=== PATIENT | female | born 1950 | race Caucasian/White ===

== ENCOUNTER 2017-07-03 15:58 | Inpatient (IN) | payer MEDICARE ==
[2016-06-07 08:28] VITALS: Ht 152.4 cm; Wt 45.4 kg
[~2017-07-03] VITALS: Ht 152.4 cm; Wt 45.4 kg
[~2017-07-03 15:58] MED LIST: ACE325 PO; ADV250/50 INH; ADV500/50 INH; ALB17R INH; ALB18R INH; ALB6.7R INH; ALBU2.5V36 INH; AMOX-362 PO; CEF300 PO; CHOL100060 PO; COM14R IH; COMBIVENT; DAR100 PO; ESCI20TA38 PO; FLU20 PO; FLU44R INH; FOL1 PO; IBUP200C71 PO; INDO50CA92 PO; LANS1COM7 PO; LEV500 PO; LOR05 PO; LOR5 PO; MEP50 PO; MET10 PO; METH4TAB66 PO; MIRT-22 PO; MULT-1335 PO; MVM PO; NIC21T TOP; NICO-180 TD; OXYC-865 PO; OXYGEN INH; OXYGENHOME INH; PENI-22 PO; PRE10 PO; PRE20 PO; PROAIRPT IH; TIO18R INH; TRAZ-133 PO; TRAZ-163 PO; VAR1 PO; VEN375 PO; [UNRECOGNIZED DRUG - OTHER] INH
[2017-07-03] MEDS ORDERED: SERT-173 PO (16:10)
--- NOTE | 2017-07-03 16:10 | ER Report ---
History and Physical Time Seen By MD: 16:10 Hx. of Stated Complaint: PTPORESENTS WITH HX OF ABD PAIN SINCE LAST NIGHT, NAUSEA THIS MORNING. HX OF BOWEL OBS, THIS FEELS THE SAME HPI/ROS CHIEF COMPLAINT: Abdominal pain HISTORY OF PRESENT ILLNESS: 67-year-old female patient presents to emergency room with complaint of abdominal pain. Patient states abdominal pain started last night. She states that she didn't have any nausea until about 10:00 this morning. She states that the nausea has gotten worse. She states from 2:00 to now the nauseous has been significant. She states she's also been having significant abdominal pain. Patient states that she's not had anything to eat or drink. She denies having any vomiting. She denies having any diarrhea. Patient does have a history of small bowel obstructions and states that this feels very similar to the last time that she had a small bowel obstruction. REVIEW OF SYSTEMS: Respiratory: No cough, no dyspnea. Cardiovascular: No chest pain, no palpitations. Gastrointestinal: As noted above Musculoskeletal: No back pain. Allergies: Coded Allergies: hydromorphone (Verified Allergy, Unknown, MENTAL STATUS CHANGES, 07/03/17) Home Meds Active Scripts Albuterol Sulfate 0.083% (ALBUTEROL SULFATE 0.083%) 2.5 Mg/3 Ml Vial.neb, 2.5 MG INH Q4H for cough/sob, #1 BOX 0 Refills Prov:TONIE CHACON MD 07/14/16 Fluticasone Prop 44 Mcg (FLOVENT HFA 44 MCG) 44 Mcg Inha, 2 PUFF INH BID, #1 INH 1 Refill Prov:TONIE CHACON MD 07/14/16 Reported Medications Sertraline Hcl (ZOLOFT) 100 Mg Tablet, 1 TAB PO QDAY, TAB 07/03/17 Oxygen (OXYGEN) 2 L Inha, 2.5 L INH NIGHT, L 08/17/14 Trazodone Hcl (TRAZODONE HCL) 100 Mg Tablet, 1 TAB PO HS Y for INSOMNIA, #30 05/14/14 Albuterol Sulfate (Proair Hfa) 8.5 Gm Aer.w.adap, 8.5 GM IH BID Y, #1 2 Refills 2 puffs BID 10/09/10 Discontinued Scripts Methylprednisolone (METHYLPREDNISOLONE) 4 Mg Tab.ds.pk, 4 MG PO DIRECTED, #1 TAB Prov:ISMAEL MEJIA MD 06/09/16 Amoxicillin (AMOXICILLIN) 500 Mg Capsule, 500 MG PO TID for 7 Days, CAPSULE Prov:ISMAEL MEJIA MD 06/09/16 Past Medical/Surgical History Patient has a past medical history of seizures, irregular heartbeat, DVT, asthma , emphysema, pneumonia, pulmonary emboli, COPD, reflux, arthritis, osteoporosis , fractures, factor V Leiden, depression, cervical cancer. Patient has a surgical history of a [place] filter placed, bowel obstruction , appendectomy, hysterectomy, right ankle surgery, deviated septum surgery, tonsillectomy. Patient has a family medical history of cancer, CAD, diabetes, psychiatric problems. Reviewed Nurses Notes: Yes Hx Smoking: Yes Smoking Status: Current: Every Day Smoker Hx Substance Use Disorder: No Hx Alcohol Use: No Constitutional Vital Sign - Last 24 Hours 07/03/17 07/03/17 07/03/17 07/03/17 16:05 16:06 16:10 16:14 Temp 99.5 Pulse 96 Resp 24 B/P (MAP) 140/107 140/107 (118) 170/137 (148) Pulse Ox 83 O2 Delivery Room Air O2 Flow Rate 2.0 07/03/17 07/03/17 07/03/17 07/03/17 16:28 16:30 16:58 16:59 Pulse 82 88 B/P (MAP) 144/95 (111) Pulse Ox 95 95 07/03/17 07/03/17 17:30 17:34 Pulse 74 B/P (MAP) 129/69 (89) Pulse Ox 98 Physical Exam General Appearance: The patient is alert, has no immediate need for airway protection and no current signs of toxicity. ENT: Tympanic membranes are pearly-king, auditory canals are patent, mucous membranes are moist. Respiratory: Chest is non tender, lungs are clear to auscultation. Cardiac: regular rate and rhythm Gastrointestinal: Abdomen is stented and tender, no masses, bowel sounds are hypoactive and left lower quadrant, otherwise active.. Musculoskeletal: Neck: Neck is supple and non tender. Extremities have full range of motion and are non tender. Skin: No rashes or lesions. DIFFERENTIAL DIAGNOSIS: After history and physical exam differential diagnosis was considered for abdominal pain including but not limited to appendicitis, cholecystitis, gastritis and urinary tract infection. Medical Decision Making Data Points Result Diagram: 07/03/17 1638 07/03/17 1638 Laboratory Hematology Test 07/03/17 16:38 07/03/17 17:48 Red Blood Count 5.57 M/uL (4.17-5.56) Mean Corpuscular Volume 90.3 fL (80.0-96.0) Mean Corpuscular Hemoglobin 30.2 pg (26.0-33.0) Mean Corpuscular Hemoglobin Concent 33.5 g/dL (32.0-36.0) Red Cell Distribution Width 13.2 % (11.5-14.5) Mean Platelet Volume 11.2 fL (7.2-11.1) Neutrophils (%) (Auto) 75.1 % (39.4-72.5) Lymphocytes (%) (Auto) 15.3 % (17.6-49.6) Monocytes (%) (Auto) 8.5 % (4.1-12.4) Eosinophils (%) (Auto) 0.3 % (0.4-6.7) Basophils (%) (Auto) 0.8 % (0.3-1.4) Nucleated RBC Relative Count (auto) 0.0 /100WBC Neutrophils # (Auto) 9.8 K/uL (2.0-7.4) Lymphocytes # (Auto) 2.0 K/uL (1.3-3.6) Monocytes # (Auto) 1.1 K/uL (0.3-1.0) Eosinophils # (Auto) 0.0 K/uL (0.0-0.5) Basophils # (Auto) 0.1 K/uL (0.0-0.1) Nucleated RBC Absolute Count (auto) 0.00 K/uL Sodium Level 137 mmol/L (137-145) Potassium Level 3.9 mmol/L (3.5-5.0) Chloride Level 101 mmol/L (98-107) Carbon Dioxide Level 27 mmol/L (22-31) Blood Urea Nitrogen 14 mg/dl (7-18) Creatinine 0.60 mg/dl (0.52-1.04) Glomerular Filtration Rate Calc > 60.0 Random Glucose 104 mg/dl (75-110) Calcium Level 9.1 mg/dl (8.4-10.2) Total Bilirubin 0.7 mg/dl (0.2-1.3) Aspartate Amino Transf (AST/SGOT) 23 U/L (0-35) Alanine Aminotransferase (ALT/SGPT) 27 U/L (0-56) Alkaline Phosphatase 53 U/L (0-126) Total Protein 6.9 gm/dl (6.3-8.2) Albumin 4.0 g/dl (3.5-5.0) Amylase Level 86 U/L (0-110) Lipase 91 U/L (23-300) Urine Color Yellow Urine Clarity Clear Urine pH 6.0 pH (4.8-9.5) Urine Specific [place] 1.043 Urine Protein Negative mg/dL (NEGATIVE) Urine Glucose (UA) Negative mg/dL (NEGATIVE) Urine Ketones Trace mg/dL (NEGATIVE) Urine Blood Negative (NEGATIVE) Urine Nitrite Negative (NEGATIVE) Urine Bilirubin Negative (NEGATIVE) Urine Urobilinogen Negative mg/dL (0.2-1.9) Urine Leukocyte Esterase Negative (NEGATIVE) Urine RBC <1 /HPF (0-2/HPF) Urine WBC 2 /HPF (0-5/HPF) Urine Squamous Epithelial Cells Many /LPF (</=FEW) Urine Transitional Epithelial Cells Few /LPF (NONE-FEW) Urine Bacteria Negative /HPF (NONE-FEW) Urine Mucus None /HPF (NONE-FEW) Chemistry Test 07/03/17 16:38 07/03/17 17:48 White Blood Count 13.0 k/uL (4.5-11.0) Red Blood Count 5.57 M/uL (4.17-5.56) Hemoglobin 16.8 g/dL (12.0-16.0) Hematocrit 50.3 % (34.0-47.0) Mean Corpuscular Volume 90.3 fL (80.0-96.0) Mean Corpuscular Hemoglobin 30.2 pg (26.0-33.0) Mean Corpuscular Hemoglobin Concent 33.5 g/dL (32.0-36.0) Red Cell Distribution Width 13.2 % (11.5-14.5) Platelet Count 131 K/uL (150-450) Mean Platelet Volume 11.2 fL (7.2-11.1) Neutrophils (%) (Auto) 75.1 % (39.4-72.5) Lymphocytes (%) (Auto) 15.3 % (17.6-49.6) Monocytes (%) (Auto) 8.5 % (4.1-12.4) Eosinophils (%) (Auto) 0.3 % (0.4-6.7) Basophils (%) (Auto) 0.8 % (0.3-1.4) Nucleated RBC Relative Count (auto) 0.0 /100WBC Neutrophils # (Auto) 9.8 K/uL (2.0-7.4) Lymphocytes # (Auto) 2.0 K/uL (1.3-3.6) Monocytes # (Auto) 1.1 K/uL (0.3-1.0) Eosinophils # (Auto) 0.0 K/uL (0.0-0.5) Basophils # (Auto) 0.1 K/uL (0.0-0.1) Nucleated RBC Absolute Count (auto) 0.00 K/uL Glomerular Filtration Rate Calc > 60.0 Calcium Level 9.1 mg/dl (8.4-10.2) Total Bilirubin 0.7 mg/dl (0.2-1.3) Aspartate Amino Transf (AST/SGOT) 23 U/L (0-35) Alanine Aminotransferase (ALT/SGPT) 27 U/L (0-56) Alkaline Phosphatase 53 U/L (0-126) Total Protein 6.9 gm/dl (6.3-8.2) Albumin 4.0 g/dl (3.5-5.0) Amylase Level 86 U/L (0-110) Lipase 91 U/L (23-300) Urine Color Yellow Urine Clarity Clear Urine pH 6.0 pH (4.8-9.5) Urine Specific [place] 1.043 Urine Protein Negative mg/dL (NEGATIVE) Urine Glucose (UA) Negative mg/dL (NEGATIVE) Urine Ketones Trace mg/dL (NEGATIVE) Urine Blood Negative (NEGATIVE) Urine Nitrite Negative (NEGATIVE) Urine Bilirubin Negative (NEGATIVE) Urine Urobilinogen Negative mg/dL (0.2-1.9) Urine Leukocyte Esterase Negative (NEGATIVE) Urine RBC <1 /HPF (0-2/HPF) Urine WBC 2 /HPF (0-5/HPF) Urine Squamous Epithelial Cells Many /LPF (</=FEW) Urine Transitional Epithelial Cells Few /LPF (NONE-FEW) Urine Bacteria Negative /HPF (NONE-FEW) Urine Mucus None /HPF (NONE-FEW) Urinalysis Test 07/03/17 17:48 Urine Color Yellow Urine Clarity Clear Urine pH 6.0 pH (4.8-9.5) Urine Specific [place] 1.043 Urine Protein Negative mg/dL (NEGATIVE) Urine Glucose (UA) Negative mg/dL (NEGATIVE) Urine Ketones Trace mg/dL (NEGATIVE) Urine Blood Negative (NEGATIVE) Urine Nitrite Negative (NEGATIVE) Urine Bilirubin Negative (NEGATIVE) Urine Urobilinogen Negative mg/dL (0.2-1.9) Urine Leukocyte Esterase Negative (NEGATIVE) Urine RBC <1 /HPF (0-2/HPF) Urine WBC 2 /HPF (0-5/HPF) Urine Squamous Epithelial Cells Many /LPF (</=FEW) Urine Transitional Epithelial Cells Few /LPF (NONE-FEW) Urine Bacteria Negative /HPF (NONE-FEW) Urine Mucus None /HPF (NONE-FEW) EKG/Imaging Imaging EXAMINATION: CT abdomen and pelvis with IV contrast HISTORY: Abdominal pain. TECHNIQUE: Axial CT images of the abdomen and pelvis were obtained with IV contrast, with coronal and sagittal 2D reconstructed images. One of the following dose optimization techniques was utilized in the performance of this exam: Automated exposure control; adjustment of the mA and/ or kV according to the patient's size; or use of an iterative reconstruction technique. Specific details can be referenced in the facility's radiology CT exam operational policy. Contrast: 75 mL of IV Isovue-370. COMPARISON: 05/25/2014. FINDINGS: Liver: Negative. Gallbladder and bile ducts: Negative. Spleen: Negative. Pancreas: Negative. Adrenal glands: Negative. Kidneys: No urinary calculi or hydronephrosis. The kidneys enhance normally. Single 1.6 cm cyst in the upper right kidney. Bowel and peritoneum: There is mild dilatation of multiple small bowel loops in the left abdomen and pelvis, measuring up to 3.8 cm, with air-fluid levels. There is transition to decompressed small bowel in the lower central pelvis, with CT appearance suspicious for small bowel obstruction. Distal segments of small bowel are normal in caliber with a small amount of fluid and air. There is some associated mesenteric edema with a trace amount of free fluid. No localized bowel wall thickening. No free intraperitoneal air. Scattered colonic diverticulosis, without evidence of diverticulitis. Pelvic structures: Hysterectomy. Lymph node assessment: Negative. Vessels: Normal caliber abdominal aorta, with mild vascular calcifications. An IVC filter is present in the right common iliac vein with the limbs of the filter extending beyond the wall of the vein into the adjacent retroperitoneal fat. This is unchanged from the prior CT. Musculoskeletal: No acute osseous findings. Mild scattered degenerative changes throughout the spine. Body wall: Negative. Lung bases: Stable chronic parenchymal scarring in the right lung base. IMPRESSION: 1. Multiple mildly dilated small bowel loops in the abdomen and pelvis, compatible with small bowel obstruction. There appears to be a transition along the mid ileum in the central pelvis. There is some mild mesenteric edema with a trace amount of free fluid. No free intraperitoneal air. 2. No other acute intra-abdominal findings. 3. Colonic diverticulosis. Findings were discussed with FLAQUITO MCKEON at 07/03/2017 5:42 PM. Report Dictated By: Ivan Perez MD at 07/03/2017 5:29 PM Report E-Signed By: Ivan Perez MD at 07/03/2017 5:42 PM ED Course/Re-evaluation ED Course Patient was admitted to the exam room, history and physical were obtained. Differential diagnoses were considered. On examination patient has hypoactive bowel sounds in the left lower quadrant, she was diffusely tender throughout. A CBC, CMP, urinalysis were obtained. Patient did have an elevated white count 13, [address] scan of abdomen and pelvis was done which showed a small bowel obstruction with transition point in the mid ileus, no perforation. I discussed the case with Dr. Melendez, general surgeon, who agreed to accept the patient for admission. He requested that a NG tube be placed. I did speak with the patient who has had a long-standing history of small bowel obstructions and states that NG tube have caused significant damage to her nose, she refused at this time. The [facility] floor with diagnosis of small bowel obstruction. Decision to Disposition Date: Jul 03, 2017 Decision to Disposition Time: 17:53 Depart Departure Latest Vital Signs Vital Signs Date Time Temp Pulse Resp B/P (MAP) Pulse Ox O2 Delivery O2 Flow Rate FiO2 07/03/17 17:34 74 98 07/03/17 17:30 129/69 (89) 07/03/17 16:10 2.0 07/03/17 16:05 99.5 24 Room Air Impression: Primary Impression: Small bowel obstruction Condition: Condition Unchanged Disposition: Admitted from ER Referrals: LUDIVINA HERNANDEZ DO (PCP) FLAQUITO MCKEON Jul 03, 2017 16:10
[2017-07-03] MEDS ORDERED: NS(*) 0.9% 1000 ML BAG 1,000 ML IV ONE (16:13)
[2017-07-03] MEDS ORDERED: ONDANSETRON 4 MG/2 ML VIAL IVP ONE (16:15)
[2017-07-03] MEDS ORDERED: ALBUTEROL/IPRATROPIUM 3 ML NEB NEB ONE (16:15)
[2017-07-03] MEDS ORDERED: MORPHINE 2 MG/ML SYR IVP ONE (16:15)
[2017-07-03] MEDS ORDERED: MORPHINE 2 MG/ML SYR ONE (16:27)
[2017-07-03] MEDS ORDERED: IOPAMIDOL 76% 75 ML INFUS BTL 0 ML ONE (16:45)
[2017-07-03 16:48] LABS: PLATELET COUNT, AUTOMATED 131 K/uL (150-450)
[2017-07-03] MEDS ORDERED: IOPAMIDOL 76% 75 ML INFUS BTL 75 ML ONE (16:59)
--- NOTE | 2017-07-03 17:46 | RADIOLOGY IMAGING REPORT ---
FACILITY: [facility] - [place] PATIENT NAME: Kim Strange : 1950 MR: [id number] V: [id number] EXAM DATE: ORDERING PHYSICIAN: FLAQUITO MCKEON TECHNOLOGIST: Location: [facility] - [place] Patient: Kim Strange : 1950 Visit/Account:[id number] Date of Sevice: 07/03/2017 EXAMINATION: CT abdomen and pelvis with IV contrast HISTORY: Abdominal pain. TECHNIQUE: Axial CT images of the abdomen and pelvis were obtained with IV contrast, with coronal a nd sagittal 2D reconstructed images. One of the following dose optimization techniques was utilized in the performance of this exam: Autom ated exposure control; adjustment of the mA and/or kV according to the patient's size; or use of an i terative reconstruction technique. Specific details can be referenced in the facility's radiology C T exam operational policy. Contrast: 75 mL of IV Isovue-370. COMPARISON: 05/25/2014. FINDINGS: Liver: Negative. Gallbladder and bile ducts: Negative. Spleen: Negative. Pancreas: Negative. Adrenal glands: Negative. Kidneys: No urinary calculi or hydronephrosis. The kidneys enhance normally. Single 1.6 cm cyst in t he upper right kidney. Bowel and peritoneum: There is mild dilatation of multiple small bowel loops in the left abdomen and pelvis, measuring up to 3.8 cm, with air-fluid levels. There is transition to decompressed small bow el in the lower central pelvis, with CT appearance suspicious for small bowel obstruction. Distal seg ments of small bowel are normal in caliber with a small amount of fluid and air. There is some associ ated mesenteric edema with a trace amount of free fluid. No localized bowel wall thickening. No free intraperitoneal air. Scattered colonic diverticulosis, without evidence of diverticulitis. Pelvic structures: Hysterectomy. Lymph node assessment: Negative. Vessels: Normal caliber abdominal aorta, with mild vascular calcifications. An IVC filter is present in the right common iliac vein with the limbs of the filter extending beyond the wall of the vein in to the adjacent retroperitoneal fat. This is unchanged from the prior CT. Musculoskeletal: No acute osseous findings. Mild scattered degenerative changes throughout the spin e. Body wall: Negative. Lung bases: Stable chronic parenchymal scarring in the right lung base. IMPRESSION: 1. Multiple mildly dilated small bowel loops in the abdomen and pelvis, compatible with small bowel o bstruction. There appears to be a transition along the mid ileum in the central pelvis. There is some mild mesenteric edema with a trace amount of free fluid. No free intraperitoneal air. 2. No other acute intra-abdominal findings. 3. Colonic diverticulosis. Findings were discussed with FLAQUITO MCKEON at 07/03/2017 5:42 PM. Report Dictated By: Ivan Perez MD at 07/03/2017 5:29 PM Report E-Signed By: Ivan Perez MD at 07/03/2017 5:42 PM WSN:[id number]
[2017-07-03 18:15] VITALS: BP 121/72
[2017-07-03] MEDS ORDERED: FLUSH 10 ML SYR IVP PRN (18:15)
[2017-07-03] MEDS ORDERED: ALBUTEROL/IPRATROPIUM 3 ML NEB NEB PRN (18:15)
[2017-07-03] MEDS ORDERED: ACETAMINOPHEN(*)1000 MG/100 ML 100 ML IVPB PRN (18:15)
[2017-07-03 19:21] VITALS: BP 132/76
[2017-07-03] MEDS: MORPHINE 2 MG/ML SYR IVP PRN ×2 (19:34→21:41)
[2017-07-03] MEDS: FLUTICASONE PROP 44 MCG INH INH SCH (19:40)
[2017-07-03] MEDS: NS(*) 0.9% 1000 ML BAG 1,000 ML IV PRN (21:18)
[2017-07-03] MEDS: traZODone HCL 50 MG TAB PO PRN (21:40)
[2017-07-04] VITALS (7 sets, daily range): BP systolic 98–123; BP diastolic 50–70
[2017-07-04] MEDS: MORPHINE 2 MG/ML SYR IVP PRN ×3 (01:03→05:01)
[2017-07-04] MEDS: ONDANSETRON 4 MG/2 ML VIAL IVP PRN ×2 (03:09→22:29)
[2017-07-04] MEDS: FLUTICASONE PROP 44 MCG INH INH SCH ×2 (04:38→17:35)
--- NOTE | 2017-07-04 06:20 | RADIOLOGY IMAGING REPORT ---
FACILITY: [facility] PATIENT NAME: Kim Strange : 1950 MR: [id number] V: [id number] EXAM DATE: ORDERING PHYSICIAN: DREA KENDRICK TECHNOLOGIST: Location: [facility] [place] Patient: Kim Strange : 1950 Visit/Account:[id number] Date of Sevice: 07/04/2017 Abdomen: Indication: Evaluate obstruction. Technique: A single supine film was obtained. Comparison: CT scan dated 07/03/2017 Findings: There are moderately dilated small bowel loops in the midabdomen and left lower quadrant, c ompatible with persistent obstruction. There is evidence of air in colon, which is not dilated. No newman spicious calcifications are identified. The IVC filter appears unchanged. Residual opaque contrast is present in the bladder lumen from the recent CT scan. IMPRESSION: There is persistent evidence of dilated small bowel loops, compatible with obstruction. Report Dictated By: Demarcus Nielsen MD at 07/04/2017 6:12 AM Report E-Signed By: Demarcus Nielsen MD at 07/04/2017 6:16 AM WSN:[id number]
[2017-07-04 06:23] LABS: PLATELET COUNT, AUTOMATED 119 K/uL (150-450)
[2017-07-04] MEDS ORDERED: NALOXONE HCL 0.4 MG/ML VIAL IVP PRN (07:25)
[2017-07-04] MEDS: NS(*) 0.9% 1000 ML BAG 1,000 ML IV PRN ×2 (07:35→19:55)
--- NOTE | 2017-07-04 07:45 | Gen Surgery History & Physical ---
History of Present Illness Chief Complaint Abdominal pain, N/V History of Present Illness 67yo female presents with 1.5 days of intermittent abdominal pain and yesterday she developed N/V. Her last BM was yesterday morning and was small. No flatus for 2 days. She's had multiple abdominal surgeries, including several for adhesiolysis to treat SBOs. I've admitted her twice (before this admission) in 6 years for SBOs and these were successfully managed conservatively. Her last SBO was almost 3 years ago. History Problems: (1) History of alcohol abuse Status: Chronic (2) COPD (chronic obstructive pulmonary disease) Status: Chronic (3) Depression Status: Chronic (4) Factor V Leiden mutation Status: Chronic (5) History of pulmonary embolism Status: Chronic (6) History of CVA (cerebrovascular accident) Status: Chronic (7) History of DVT (deep vein thrombosis) Status: Chronic (8) OAB (overactive bladder) Status: Chronic (9) INSOMNIA, UNSPECIFIED Status: Chronic (10) S/P insertion of IVC (inferior vena caval) filter Status: Chronic (11) History of laparotomy Status: Chronic Home Meds Active Scripts Albuterol Sulfate 0.083% (ALBUTEROL SULFATE 0.083%) 2.5 Mg/3 Ml Vial.neb, 2.5 MG INH Q4H for cough/sob, #1 BOX 0 Refills Prov:TONIE CHACON MD 07/14/16 Fluticasone Prop 44 Mcg (FLOVENT HFA 44 MCG) 44 Mcg Inha, 2 PUFF INH BID, #1 INH 1 Refill Prov:TONIE CHACON MD 07/14/16 Reported Medications Sertraline Hcl (ZOLOFT) 100 Mg Tablet, 1 TAB PO QDAY, TAB 07/03/17 Oxygen (OXYGEN) 2 L Inha, 2.5 L INH NIGHT, L 08/17/14 Trazodone Hcl (TRAZODONE HCL) 100 Mg Tablet, 1 TAB PO HS Y for INSOMNIA, #30 05/14/14 Albuterol Sulfate (Proair Hfa) 8.5 Gm Aer.w.adap, 8.5 GM IH BID Y, #1 2 Refills 2 puffs BID 10/09/10 Discontinued Scripts Methylprednisolone (METHYLPREDNISOLONE) 4 Mg Tab.ds.pk, 4 MG PO DIRECTED, #1 TAB Prov:ROBERTO,PUSHAPDEEP K MD 06/09/16 Amoxicillin (AMOXICILLIN) 500 Mg Capsule, 500 MG PO TID for 7 Days, CAPSULE Prov:ISMAEL MEJIA MD 06/09/16 Allergies: Coded Allergies: hydromorphone (Verified Allergy, Unknown, MENTAL STATUS CHANGES, 07/03/17) Patient History: FH: CHF (congestive heart failure) MOTHER FH: COPD (chronic obstructive pulmonary disease) MOTHER Review of Systems All Systems Reviewed/Normal: Yes, Except as Noted Gastrointestinal: Nausea, Vomiting, Abdominal Pain Exam General Appearance: Alert, Awake, No Acute Distress, Afebrile Neuro: No Gross deficits Eyes: PERRLA GI: Other (Soft, distended, diffusely TTP, no peritoneal signs.) Extremities: Warm, Perfused Medical Decision Making Data Points Result Diagram: 07/04/17 0535 07/04/17 0535 Assessment and Plan Problems: (1) Small bowel obstruction Status: Acute Assessment & Plan: 07/04/17: Admit, NPO, IV fluids, bowel rest. Will start with conservative management and if she fails this then surgical exploration may become necessary. She is a high risk surgical patient due to her cardiovascular disease, smoker, and severe COPD. Will try to avoid surgery. I' ve strongly recommend NG tube insertion for GI tract decompression but she has repeatedly refused this. She has had multiple NGs in the past and she reports her nose is deformed because of them, she can't move air through her right nostril due to previous NG tubes, and she's afraid she won't be able to breath with an NG in her left nostril since her right nostril is obstructed. Will hold off on NG for now. Pain control with COMPENSATION SUPERVISOR, IV tylenol, and IV toradol. If she fails to improve today, will consider water-soluble SBFT tomorrow. She seems to understand and she seems agreeable with this plan. (2) COPD (chronic obstructive pulmonary disease) Status: Chronic Assessment & Plan: Will have her on her chronic maintenance regimen and duoneb treatments as needed. This will certainly increase the risks of respiratory failure/ventilator dependance and if surgery is required. (3) Factor V Leiden mutation Status: Chronic Assessment & Plan: She is not on chronic blood thinners, will have her on prophylactic lovenox while admitted. (4) History of DVT (deep vein thrombosis) Status: Chronic Assessment & Plan: prophylactic lovenox (5) History of pulmonary embolism Status: Chronic Assessment & Plan: Prophylactic lovenox (6) History of alcohol abuse Status: Chronic Assessment & Plan: Denies recent use, will observe for withdrawal s/sx (7) Smoker Status: Chronic Assessment & Plan: Nicotine patch Condition STable. Time Spent: < 30 min Venous Thromboembolism VTE Risk Physician Assess for VTE Risk: Yes Patient's VTE Risk: High VTE Diagnostic Test 2 Days Prior to Admit: No Antithrombotics Is Pt On Any Antithrombotics?: Yes Problem Qualifiers (1) COPD (chronic obstructive pulmonary disease): COPD type: emphysema Emphysema type: unspecified Qualified Codes: J43.9 - Emphysema, unspecified DREA KENDRICK MD Jul 04, 2017 07:45
[2017-07-04] MEDS: MORPHINE 1 MG/ML 30 ML PCA IV PRN ×2 (08:20→19:54)
[2017-07-04] MEDS: NICOTINE 14 MG/24 HR PATCH TD SCH (08:35)
[2017-07-04] MEDS: PANTOPRAZOLE SOD 40 MG IV VIAL IVP SCH (08:36)
[2017-07-04] MEDS: ENOXAPARIN 40 MG/0.4ML SYR SC SCH (08:36)
[2017-07-04] MEDS: SERTRALINE HCL 50 MG TAB PO SCH (09:23)
[2017-07-04] MEDS: KETOROLAC 30 MG/ML VIAL IVP SCH ×3 (09:24→20:59)
[2017-07-04] MEDS: ACETAMINOPHEN(*)1000 MG/100 ML 100 ML IVPB SCH ×2 (12:05→18:38)
--- NOTE | 2017-07-04 13:39 | Medical Nutrition Therapy ---
Nutrition Anthropometrics Height (Inches): 60 Weight (Pounds): 100 Weight (Calculated Kilograms): 45.416 BMI Calculated: 18.94 Roel Nutrition Score: Probably Inadequate Roel Nutrition Risk Score: 19 Dietary Referral Nutrition Risk Factors: Unplanned Loss >10lbs, Significantly Underwt. Nutrition Risk Comment: 2 year wt loss Physical Findings Physical Appearance: BMI 19.6 Skin Appearance Skin Appearance: Edema Edema Location Modifier: Edema Location: Type of Edema: Degree of Edema: Gastrointestinal Symptoms GI Symtoms: Nausea, Vomiting, Appetite Changes, Change in Bowel Pattern Tube Present: Bowel Sounds: Recent Bowel Pattern: Stool Characteristics: Nutritional Diagnosis Nutritional Risk Acuity 1: GI Obstruction Nutritional Risk Acuity 3: Nausea Past Medical History: Factor V Leiden mutation, History of pulmonary embolism, OAB (overactive bladder), INSOMNIA, UNSPECIFIED, S/P insertion of IVC (inferior vena caval) filter, History of laparotomy, Small bowel obstruction, COPD (chronic obstructive pulmonary disease), Depression, History of DVT (deep vein thrombosis), History of CVA (cerebrovascular accident) Nutritional Acuity: 1-High Nutrition Diagnosis: Altered GI Function Nutrition Etiology: Physiological Causes Nutrition Problem/Etiology/Sym: AEB dx SBO Energy Requirement: 1200 (M- StJ) Protein Requirement: 45 (1gm/kg) Fluid Requirement: 1350 (30ml/kg) Diet Type: NPO (Nothing by Mouth) Nutrition Intervention: Incr diet as tolerated Nutrition Monitoring & Eval RD Patient Assessment Time: [address] Assessment Type: RD Assessment Patient Nutrition Acuity: 1-High Follow Up Date: Jul 07, 2017 Nutritional Comment: 07/04 Pt admittted for SBO. Pt currently NPO. Alb 4. Pt reporting N/V. Will cont to monitor. STEPHANIE CAMPBELL Jul 04, 2017 13:38
[2017-07-04] MEDS: traZODone HCL 50 MG TAB PO PRN (22:47)
[2017-07-05 03:16] VITALS: BP 96/42
[2017-07-05] MEDS: KETOROLAC 30 MG/ML VIAL IVP SCH ×4 (03:19→21:13)
[2017-07-05] MEDS: ACETAMINOPHEN(*)1000 MG/100 ML 100 ML IVPB SCH ×4 (05:24→18:00)
[2017-07-05] MEDS: NS(*) 0.9% 1000 ML BAG 1,000 ML IV PRN (05:24)
[2017-07-05] MEDS: FLUTICASONE PROP 44 MCG INH INH SCH ×2 (05:29→17:05)
[2017-07-05 06:44] LABS: PLATELET COUNT, AUTOMATED 92 K/uL (150-450)
--- NOTE | 2017-07-05 06:51 | RADIOLOGY IMAGING REPORT ---
[place] [facility] [place] NAME: Kim Strange : 1950 MR: [id number] V: [id number] EXAM DATE: ORDERING PHYSICIAN: DREA KENDRICK TECHNOLOGIST: Location: [facility] - [place] Patient: Kim Strange : 1950 Visit/Account:[id number] Date of Sevice: 07/05/2017 Portable abdomen: Indication: Follow-up obstruction. Technique: 2 supine views were obtained. Comparison: 07/04/2017 Findings: The intestinal gas pattern has improved. No residual small bowel dilatation is identified. There is no residual contrast in the bladder lumen. The skeletal and soft tissue structures are other ojeda unchanged. IMPRESSION: No residual small bowel dilatation. Report Dictated By: Demarcus Nielsen MD at 07/05/2017 6:45 AM Report E-Signed By: Demarcus Nielsen MD at 07/05/2017 6:47 AM WSN:[id number]
[2017-07-05] MEDS ORDERED: KCL/D1/2NS 20 MEQ 1000 ML 1,000 ML IV SCH ×2 (07:15→17:57)
[2017-07-05 07:16] VITALS: BP 94/65
[2017-07-05] MEDS ORDERED: CALCIUM CL 100 MG/1 ML SYR 1,000 MG in NS(*) 0.9% 100 ML BAG 100 ML IVPB ONE (08:00)
--- NOTE | 2017-07-05 08:26 | General Surgery Progress Note ---
Subjective Progress Notes Subjective Had 2 episodes of emesis overnight. No flatus or BM yet. Abdominal pain is much better. Physical Exam Vital Signs Date Time Temp Pulse Resp B/P (MAP) Pulse Ox O2 Delivery O2 Flow Rate FiO2 07/05/17 07:30 16 95 07/05/17 07:16 97.8 70 94/65 (75) Nasal Cannula 3.0 Intake and Output 07/06/17 07:00 Intake Total 75 ml Balance 75 ml Intake IV Total 75 ml General Appearance: Alert, Awake, No Acute Distress, Afebrile GI: Other (Soft, mildly distended, diffuse mild TTP, no peritoneal signs, no palpable mass or bulge) Extremities: Warm, Perfused Result Diagram: 07/05/17 0638 07/05/17 06 Assessment and Plan Problems: (1) Small bowel obstruction Status: Acute Assessment & Plan: 07/04/17: Admit, NPO, IV fluids, bowel rest. Will start with conservative management and if she fails this then surgical exploration may become necessary. She is a high risk surgical patient due to her cardiovascular disease, smoker, and severe COPD. Will try to avoid surgery. I' ve strongly recommend NG tube insertion for GI tract decompression but she has repeatedly refused this. She has had multiple NGs in the past and she reports her nose is deformed because of them, she can't move air through her right nostril due to previous NG tubes, and she's afraid she won't be able to breath with an NG in her left nostril since her right nostril is obstructed. Will hold off on NG for now. Pain control with SUPERVISOR SLATE SPLITTING, IV tylenol, and IV toradol. If she fails to improve today, will consider water-soluble SBFT tomorrow. She seems to understand and she seems agreeable with this plan. 07/05/17: Continued SBO. Continue bowel rest. Will get SBFT (water soluble) today. Will need to consider surgical exploration in the next 2 days in this high risk patient if she fails to improve. (2) COPD (chronic obstructive pulmonary disease) Status: Chronic Assessment & Plan: Will have her on her chronic maintenance regimen and duoneb treatments as needed. This will certainly increase the risks of respiratory failure/ventilator dependance and if surgery is required. (3) Factor V Leiden mutation Status: Chronic Assessment & Plan: She is not on chronic blood thinners, will have her on prophylactic lovenox while admitted. (4) History of DVT (deep vein thrombosis) Status: Chronic Assessment & Plan: prophylactic lovenox (5) History of pulmonary embolism Status: Chronic Assessment & Plan: Prophylactic lovenox (6) History of alcohol abuse Status: Chronic Assessment & Plan: Denies recent use, will observe for withdrawal s/sx (7) Smoker Status: Chronic Assessment & Plan: Nicotine patch Condition Stable. Time Spent: < 30 min Exam Sepsis Risk: No Definite Risk Problem Qualifiers (1) COPD (chronic obstructive pulmonary disease): COPD type: emphysema Emphysema type: unspecified Qualified Codes: J43.9 - Emphysema, unspecified DREA KENDRICK MD Jul 05, 2017 08:25
[2017-07-05] MEDS ORDERED: DIATRIZOATE MEGL/DIATRIZOA SOD 120 ML SOLN PO ONE (08:49)
[2017-07-05] MEDS: SERTRALINE HCL 50 MG TAB PO SCH (10:02)
[2017-07-05] MEDS: NICOTINE 14 MG/24 HR PATCH TD SCH (10:03)
[2017-07-05] MEDS: PANTOPRAZOLE SOD 40 MG IV VIAL IVP SCH (10:04)
[2017-07-05] MEDS: ENOXAPARIN 40 MG/0.4ML SYR SC SCH (10:04)
--- NOTE | 2017-07-05 12:54 | RADIOLOGY IMAGING REPORT ---
FAC[place] [facility] [place] NAME: Kim Strange : 1950 MR: [id number] V: [id number] EXAM DATE: ORDERING PHYSICIAN: DREA KENDRICK TECHNOLOGIST: Location: [facility] - [place] Patient: Kim Strange : 1950 Visit/Account:[id number] Date of Sevice: 07/05/2017 SMALL BOWEL SERIES HISTORY: Possible small bowel obstruction. COMPARISON: CT abdomen and pelvis 07/03/2017 PROCEDURE: Gastrografin 800 mL was administered orally. FINDINGS: Underground Supervisor radiograph demonstrates an IVC filter projected on the right side of the L4 vertebra. Bowel ga s pattern is average, with no dilated or thickened small bowel loops seen. There is a large coarse b enign calcification along the left lower pelvic sidewall. Small bowel transit time is less than 2.5 hours. The small bowel is uniform in size, without focal t hickening, mass effect, or stricture. Fluoroscopy of the cecum and ileocecal junction is normal. IMPRESSION: Resolution of small bowel obstruction since 07/03/2017. Fluoroscopy time 1.2 minutes DAP 417.07 [id number] Report Dictated By: Kim Barr MD at 07/05/2017 12:44 PM Report E-Signed By: Kim Barr MD at 07/05/2017 12:50 PM [email or web address]
[2017-07-05 15:16] VITALS: BP 132/90
--- NOTE | 2017-07-05 17:59 | Miscellaneous Provider Note ---
Miscellaneous Provider Note Note SBFT reveals the SBO is resolved. Pt feeling much better and passing flatus and BMs. Will start clear diet tonight and decrease her IV fluid rate. DREA KENDRICK MD Jul 05, 2017 17:58
[2017-07-05 18:52] VITALS: BP 106/56
[2017-07-05] MEDS: traZODone HCL 50 MG TAB PO PRN (21:30)
[2017-07-05] MEDS: MORPHINE 1 MG/ML 30 ML PCA IV PRN (22:54)
[2017-07-05 23:29] VITALS: BP 112/67
[2017-07-06] MEDS: ACETAMINOPHEN(*)1000 MG/100 ML 100 ML IVPB SCH ×3 (00:38→12:05)
[2017-07-06 03:09] VITALS: BP 104/57
[2017-07-06] MEDS: KETOROLAC 30 MG/ML VIAL IVP SCH ×3 (03:13→15:15)
[2017-07-06] MEDS: FLUTICASONE PROP 44 MCG INH INH SCH (05:39)
[2017-07-06 06:00] LABS: PLATELET COUNT, AUTOMATED 94 K/uL (150-450)
[2017-07-06 07:00] VITALS: BP 139/49
--- NOTE | 2017-07-06 07:24 | RADIOLOGY IMAGING REPORT ---
FACILITY: [facility] PATIENT NAME: Kim Strange : 1950 MR: [id number] V: [id number] EXAM DATE: ORDERING PHYSICIAN: DREA KENDRICK TECHNOLOGIST: Location: [facility] Patient: Kim Strange : 1950 Visit/Account:[id number] Date of Sevice: 07/06/2017 KUB SINGLE VIEW ABDOMEN HISTORY: Small bowel obstruction. COMPARISON: 07/05/2017 and studies dating to 04/28/2008. FINDINGS: KUB was performed. There is contrast throughout colon to the rectal vault. Distrubution of bowel gas is normal with mayda l in all four quadrants as well as centrally. No dilated bowel loops. No free air. There is an IVC filter, unchanged in position. There is blunting of the costophrenic angles. IMPRESSION: 1. Unremarkable bowel gas pattern without obstruction. 2. Blunting of the costophrenic angles, which may be due to atelectasis versus trace pleural effusion s. Report Dictated By: Kandace Decker at 07/06/2017 7:17 AM Report E-Signed By: Kandace Decker at 07/06/2017 7:20 AM [id number]
[2017-07-06 07:52] VITALS: BP 108/61
[2017-07-06] MEDS: ENOXAPARIN 40 MG/0.4ML SYR SC SCH (09:25)
[2017-07-06] MEDS: NICOTINE 14 MG/24 HR PATCH TD SCH (09:25)
[2017-07-06] MEDS: SERTRALINE HCL 50 MG TAB PO SCH (09:25)
[2017-07-06] MEDS: PANTOPRAZOLE SOD 40 MG IV VIAL IVP SCH (09:26)
--- NOTE | 2017-07-06 09:37 | General Surgery Progress Note ---
Subjective Progress Notes Subjective No complaints, tolerating liquids, having BM's and passing flatus. "I want to go home." Physical Exam Vital Signs Date Time Temp Pulse Resp B/P (MAP) Pulse Ox O2 Delivery O2 Flow Rate FiO2 07/06/17 08:05 16 94 07/06/17 07:52 Nasal Cannula 2.0 07/06/17 07:52 98.3 67 108/61 (77) Intake and Output 07/07/17 07:00 Intake Total 540 ml Balance 540 ml Intake Oral 540 ml # Voids 1 # Bowel Movements 1 General Appearance: Alert, Awake, No Acute Distress, Afebrile Neuro: No Gross deficits ENT: Moist Mucous Membranes GI: Soft and Non-Tender Psych: Alert & Oriented X3, Appropriate Mood & Affect Result Diagram: 07/06/17 0545 07/06/17 0545 Assessment and Plan Problems: (1) Small bowel obstruction Status: Acute Assessment & Plan: 07/04/17: Admit, NPO, IV fluids, bowel rest. Will start with conservative management and if she fails this then surgical exploration may become necessary. She is a high risk surgical patient due to her cardiovascular disease, smoker, and severe COPD. Will try to avoid surgery. I' ve strongly recommend NG tube insertion for GI tract decompression but she has repeatedly refused this. She has had multiple NGs in the past and she reports her nose is deformed because of them, she can't move air through her right nostril due to previous NG tubes, and she's afraid she won't be able to breath with an NG in her left nostril since her right nostril is obstructed. Will hold off on NG for now. Pain control with FIRMWARE ENGINEER, IV tylenol, and IV toradol. If she fails to improve today, will consider water-soluble SBFT tomorrow. She seems to understand and she seems agreeable with this plan. 07/05/17: Continued SBO. Continue bowel rest. Will get SBFT (water soluble) today. Will need to consider surgical exploration in the next 2 days in this high risk patient if she fails to improve. 07/05/17: SBFT show transit to colon with no evidence of obstruction. Having BM' s. Advance diet as tolerated. 07/06/17: Feeling good, tolerating liquids. Will advance diet. Patient wants to go home after lunch. DC home with follow up with PCP in next few weeks. No new meds. Patient will resume her home meds. (2) COPD (chronic obstructive pulmonary disease) Status: Chronic Assessment & Plan: Will have her on her chronic maintenance regimen and duoneb treatments as needed. This will certainly increase the risks of respiratory failure/ventilator dependance and if surgery is required. (3) Factor V Leiden mutation Status: Chronic Assessment & Plan: She is not on chronic blood thinners, will have her on prophylactic lovenox while admitted. (4) History of DVT (deep vein thrombosis) Status: Chronic Assessment & Plan: prophylactic lovenox (5) History of pulmonary embolism Status: Chronic Assessment & Plan: Prophylactic lovenox (6) History of alcohol abuse Status: Chronic Assessment & Plan: Denies recent use, will observe for withdrawal s/sx (7) Smoker Status: Chronic Assessment & Plan: Nicotine patch Exam Sepsis Risk: No Definite Risk Problem Qualifiers (1) COPD (chronic obstructive pulmonary disease): COPD type: emphysema Emphysema type: unspecified Qualified Codes: J43.9 - Emphysema, unspecified JONAS BAH MD Jul 06, 2017 09:37
--- NOTE | 2017-07-06 09:40 | Hospitalist Depart ---
Discharge Summary Reason for Hosp/Final Diag: (1) Small bowel obstruction Status: Resolved Hospital Course & Plan: 07/04/17: Admit, NPO, IV fluids, bowel rest. Will start with conservative management and if she fails this then surgical exploration may become necessary. She is a high risk surgical patient due to her cardiovascular disease, smoker, and severe COPD. Will try to avoid surgery. I've strongly recommend NG tube insertion for GI tract decompression but she has repeatedly refused this. She has had multiple NGs in the past and she reports her nose is deformed because of them, she can't move air through her right nostril due to previous NG tubes, and she's afraid she won't be able to breath with an NG in her left nostril since her right nostril is obstructed. Will hold off on NG for now. Pain control with SAS ETL DEVELOPER, IV tylenol, and IV toradol. If she fails to improve today, will consider water-soluble SBFT tomorrow. She seems to understand and she seems agreeable with this plan. 07/05/17: Continued SBO. Continue bowel rest. Will get SBFT (water soluble) today. Will need to consider surgical exploration in the next 2 days in this high risk patient if she fails to improve. 07/05/17: SBFT show transit to colon with no evidence of obstruction. Having BM' s. Advance diet as tolerated. 07/06/17: Feeling good, tolerating liquids. Will advance diet. Patient wants to go home after lunch. DC home with follow up with PCP in next few weeks. No new meds. Patient will resume her home meds. (2) COPD (chronic obstructive pulmonary disease) Status: Chronic Hospital Course & Plan: Will have her on her chronic maintenance regimen and duoneb treatments as needed. This will certainly increase the risks of respiratory failure/ventilator dependance and if surgery is required. (3) Factor V Leiden mutation Status: Chronic Hospital Course & Plan: She is not on chronic blood thinners, will have her on prophylactic lovenox while admitted. (4) History of DVT (deep vein thrombosis) Status: Chronic Hospital Course & Plan: prophylactic lovenox (5) History of pulmonary embolism Status: Chronic Hospital Course & Plan: Prophylactic lovenox (6) History of alcohol abuse Status: Chronic Hospital Course & Plan: Denies recent use, will observe for withdrawal s/sx (7) Smoker Status: Chronic Hospital Course & Plan: Nicotine patch Departure Weight (Pounds): 100 Weight (Ounces): 2.0 Result Diagram: 07/06/1754407/06/17544 Condition: Improved Discharge: Home Discharge Code Status: Full Code Time Spent: < 30 min Discharge Instructions Home Meds Active Scripts Albuterol Sulfate 0.083% (ALBUTEROL SULFATE 0.083%) 2.5 Mg/3 Ml Vial.neb, 2.5 MG INH Q4H for cough/sob, #1 BOX 0 Refills Prov:TONIE CHACON MD 07/14/16 Fluticasone Prop 44 Mcg (FLOVENT HFA 44 MCG) 44 Mcg Inha, 2 PUFF INH BID, #1 INH 1 Refill Prov:TONIE CHACON MD 07/14/16 Reported Medications Sertraline Hcl (ZOLOFT) 100 Mg Tablet, 1 TAB PO QDAY, TAB 07/03/17 Oxygen (OXYGEN) 2 L Inha, 2.5 L INH NIGHT, L 08/17/14 Trazodone Hcl (TRAZODONE HCL) 100 Mg Tablet, 1 TAB PO HS Y for INSOMNIA, #30 05/14/14 Albuterol Sulfate (Proair Hfa) 8.5 Gm Aer.w.adap, 8.5 GM IH BID Y, #1 2 Refills 2 puffs BID 10/09/10 Discontinued Scripts Methylprednisolone (METHYLPREDNISOLONE) 4 Mg Tab.ds.pk, 4 MG PO DIRECTED, #1 TAB Prov:ISMAEL MEJIA MD 06/09/16 Amoxicillin (AMOXICILLIN) 500 Mg Capsule, 500 MG PO TID for 7 Days, CAPSULE Prov:ISMAEL MEJIA MD 06/09/16 Diet: Regular Activity: As Tolerated Special Instructions: Low fiber diet Venous Thromboembolism Antithrombotics Is Pt On Any Antithrombotics?: Yes Problem Qualifiers (1) COPD (chronic obstructive pulmonary disease): COPD type: emphysema Emphysema type: unspecified Qualified Codes: J43.9 - Emphysema, unspecified JONAS BAH MD Jul 06, 2017 09:40
[2017-07-06 10:34] VITALS: BP 113/61
== END 2017-07-06 16:12 | disposition home or self-care (01) | DRG 389 ==
LOC: ER 16:26 → INTOOBSV 18:02 → MED 18:02 → OBSVTOIN 07-04
PROVIDERS: ADMIT Surgery; ATTEND Surgery
DX: K56.609 Unspecified intestinal obstruction, unspecified as to partial versus complete obstruction (principal); D68.51 Activated protein C resistance; K21.9 Gastro-esophageal reflux disease without esophagitis; N32.81 Overactive bladder; F10.11 Alcohol abuse, in remission; F17.210 Nicotine dependence, cigarettes, uncomplicated; M81.0 Age-related osteoporosis without current pathological fracture; F32.9 Major depressive disorder, single episode, unspecified; J43.9 Emphysema, unspecified; G47.00 Insomnia, unspecified; Z86.718 Personal history of other venous thrombosis and embolism; Z86.711 Personal history of pulmonary embolism; Z88.5 Allergy status to narcotic agent; Z85.41 Personal history of malignant neoplasm of cervix uteri; Z90.710 Acquired absence of both cervix and uterus; Z95.828 Presence of other vascular implants and grafts; Z99.81 Dependence on supplemental oxygen
CPT/HCPCS: 36415; 36416; 74018; 74177; 74250; 81001; 82040; 82150; 82247; 82310; 82374; 82435; 82565; 82947; 82948; 83690; 84075; 84132; 84155; 84295; 84450; 84460; 84520; 85025; 94640; 99284; C9113; G0378; J0131; J1650; J1885; J2270; J2405; J3480; J3490; J7030; J7050; Q9967

== ENCOUNTER → 2017-09-18 | Outpatient (CLI) | payer MEDICARE ==
[2016-06-07 08:28] VITALS: BMI 18.9
[~2017-09-18] MED LIST changes: +DENOSUMAB 60 MG/1 ML SYR SUBQ ONE; +SERT-173 PO
== END ==
LOC: SPU 07:39
PROVIDERS: ATTEND Family Medicine
DX: M81.0 Age-related osteoporosis without current pathological fracture (principal)
CPT/HCPCS: 96372; J0897

== ENCOUNTER 2017-09-22 07:00 | Emergency (ER) | payer MEDICARE ==
[2016-06-07 08:28] VITALS: Wt 45.4 kg
[~2017-09-22 07:00] MED LIST changes: -DENOSUMAB 60 MG/1 ML SYR SUBQ ONE
[2017-09-22] MEDS ORDERED: ALBUTEROL/IPRATROPIUM 3 ML NEB ONE (07:26)
[2017-09-22] MEDS ORDERED: ALBUTEROL/IPRATROPIUM 3 ML NEB NEB ONE (07:50)
[2017-09-22 08:47] LABS: PLATELET COUNT, AUTOMATED 133 K/uL (150-450)
[2017-09-22] MEDS ORDERED: predniSONE 10 MG TAB PO SCH (09:00)
[2017-09-22] MEDS ORDERED: AZITHROMYCIN(*) 500 MG 500 MG in NS(*) 0.9% 250 ML BAG 250 ML IVPB ONE (09:10)
[2017-09-22] MEDS ORDERED: ALBUTEROL 2.5 MG/3 ML NEB NEB ONE (09:10)
[2017-09-22] MEDS ORDERED: predniSONE 20 MG TAB PO ONE (09:15)
--- NOTE | 2017-09-22 09:33 | RADIOLOGY IMAGING REPORT ---
FACILITY: [facility] PATIENT NAME: Kim Strange : 1950 MR: [id number] V: [id number] EXAM DATE: ORDERING PHYSICIAN: JB ROSADO TECHNOLOGIST: Location: [facility] - [place] Patient: Kim Strange : 1950 Visit/Account:[id number] Date of Sevice: 09/22/2017 2 VIEWS CHEST INDICATION: Cough, shortness of breath, smoker COMPARISON: Examination of the chest January 25, 2017. FINDINGS: Heart size within normal limits. There is chronic interstitial changes with mild pulmonary hyperinflation. Chronic blunting and likely pleural scarring is noted in the right base. Mild central bronchitic young ges unchanged. No evidence of acute failure or new infiltrate. IMPRESSION: 1. Chronic central interstitial and bronchitic changes. No evidence of acute finding. Report Dictated By: Jose Luis Sheppard MD at 09/22/2017 9:26 AM Report E-Signed By: Jose Luis Sheppard MD at 09/22/2017 9:28 AM WSN:[id number]
--- NOTE | 2017-09-22 10:07 | ER Report ---
History and Physical Time Seen By MD: 07:00 Hx. of Stated Complaint: COUGH, SORE THROAT, AND SOB FOR TWO DAYS. PT TYPICALLY WEARS 2L NC, BUT DID NOT WEAR IT WHILE WALKING INTO THE HOSPITAL. HPI/ROS 67 y/o female with a history of COPD presents to the emergency department with a one-week history of worsening cough, URI symptoms, and shortness of breath. She denies chest pain or fever chills. She is an everyday tobacco smoker. She says that she has been stressed lately, because she is trying to sell her home in [place] and is also moving from one apartment to the other here in [place]. She has not been on any antibiotics or steroids recently. She is on 2 L nasal cannula at all times while at home. Remainder of the 14 system rev: Yes Allergies: Coded Allergies: hydromorphone (Verified Allergy, Unknown, MENTAL STATUS CHANGES, 07/03/17) Home Meds Active Scripts Prednisone (PREDNISONE) 20 Mg Tablet, 40 MG PO QDAY for 5 Days, #10 TAB Prov:JB ROSADO MD 09/22/17 Azithromycin (ZITHROMAX) 250 Mg Tablet, 1 TAB PO QDAY for 4 Days, #4 TAB Prov:JB ROSADO MD 09/22/17 Reported Medications Sertraline Hcl (ZOLOFT) 100 Mg Tablet, 1 TAB PO QDAY, TAB 07/03/17 Oxygen (OXYGEN) 2 L Inha, 2.5 L INH NIGHT, L 08/17/14 Trazodone Hcl (TRAZODONE HCL) 100 Mg Tablet, 1 TAB PO HS Y for INSOMNIA, #30 05/14/14 Albuterol Sulfate (Proair Hfa) 8.5 Gm Aer.w.adap, 8.5 GM IH BID Y, #1 2 Refills 2 puffs BID 10/09/10 Discontinued Scripts Albuterol Sulfate 0.083% (ALBUTEROL SULFATE 0.083%) 2.5 Mg/3 Ml Vial.neb, 2.5 MG INH Q4H for cough/sob, #1 BOX 0 Refills Prov:TONIE CHACON MD 07/14/16 Fluticasone Prop 44 Mcg (FLOVENT HFA 44 MCG) 44 Mcg Inha, 2 PUFF INH BID, #1 INH 1 Refill Prov:TONIE CHACON MD 07/14/16 Reviewed Nurses Notes: Yes Old Medical Records Reviewed: Yes Hx Smoking: Yes Smoking Status: Current: Every Day Smoker Hx Substance Use Disorder: No Hx Alcohol Use: No Constitutional Vital Sign - Last 24 Hours 09/22/17 09/22/17 09/22/17 09/22/17 07:05 07:05 07:28 07:28 Temp 98.8 Pulse 95 80 Resp 20 18 B/P (MAP) 160/82 Pulse Ox 77 94 O2 Delivery Room Air Nasal Cannula O2 Flow Rate 6.0 2.0 09/22/17 09/22/17 09/22/17 09/22/17 07:30 07:34 08:00 08:30 Pulse 81 82 Resp 18 27 B/P (MAP) 119/85 (96) 132/96 (108) 121/78 (92) Pulse Ox 100 92 09/22/17 09/22/17 09/22/17 09/22/17 09:00 09:13 09:13 09:17 Pulse 73 73 75 Resp 27 16 16 B/P (MAP) 119/76 (90) Pulse Ox 92 98 O2 Delivery Nasal Cannula O2 Flow Rate 2.0 09/22/17 09:30 Pulse 82 Physical Exam General Appearance: The patient is alert, has no immediate need for airway protection and no current signs of toxicity. Eyes: Pupils equal and round no injection. Respiratory: Chest is non tender, diminshed breath sounds throughout with scattered wheezing Cardiac: regular rate and rhythm Gastrointestinal: Abdomen is soft and non tender, no masses, bowel sounds normal. Extremities have full range of motion and are non tender. Skin: No rashes or lesions. DIFFERENTIAL DIAGNOSIS: After history and physical exam differential diagnosis was considered for shortness of breath including but not limited to pulmonary infectious process, COPD, asthma, pulmonary embolus and congestive heart failure. Medical Decision Making Data Points Result Diagram: 09/22/1772009/22/17720 Laboratory Hematology Test 09/22/17 07:21 Red Blood Count 5.08 M/uL (4.17-5.56) Mean Corpuscular Volume 92.3 fL (80.0-96.0) Mean Corpuscular Hemoglobin 31.5 pg (26.0-33.0) Mean Corpuscular Hemoglobin Concent 34.1 g/dL (32.0-36.0) Red Cell Distribution Width 13.8 % (11.5-14.5) Mean Platelet Volume 11.5 fL (7.2-11.1) Neutrophils (%) (Auto) 66.5 % (39.4-72.5) Lymphocytes (%) (Auto) 15.8 % (17.6-49.6) Monocytes (%) (Auto) 16.7 % (4.1-12.4) Eosinophils (%) (Auto) 0.4 % (0.4-6.7) Basophils (%) (Auto) 0.6 % (0.3-1.4) Nucleated RBC Relative Count (auto) 0.4 /100WBC Neutrophils # (Auto) 5.8 K/uL (2.0-7.4) Lymphocytes # (Auto) 1.4 K/uL (1.3-3.6) Monocytes # (Auto) 1.5 K/uL (0.3-1.0) Eosinophils # (Auto) 0.0 K/uL (0.0-0.5) Basophils # (Auto) 0.1 K/uL (0.0-0.1) Nucleated RBC Absolute Count (auto) 0.03 K/uL Sodium Level 140 mmol/L (137-145) Potassium Level 3.8 mmol/L (3.5-5.0) Chloride Level 100 mmol/L (98-107) Carbon Dioxide Level 31 mmol/L (22-31) Blood Urea Nitrogen 10 mg/dl (7-18) Creatinine 0.60 mg/dl (0.52-1.04) Glomerular Filtration Rate Calc > 60.0 Random Glucose 95 mg/dl (75-110) Calcium Level 9.5 mg/dl (8.4-10.2) Total Bilirubin 0.9 mg/dl (0.2-1.3) Aspartate Amino Transf (AST/SGOT) 33 U/L (0-35) Alanine Aminotransferase (ALT/SGPT) 21 U/L (0-56) Alkaline Phosphatase 52 U/L (0-126) Total Protein 6.9 gm/dl (6.3-8.2) Albumin 4.1 g/dl (3.5-5.0) Chemistry Test 09/22/17 07:21 White Blood Count 8.7 k/uL (4.5-11.0) Red Blood Count 5.08 M/uL (4.17-5.56) Hemoglobin 16.0 g/dL (12.0-16.0) Hematocrit 46.9 % (34.0-47.0) Mean Corpuscular Volume 92.3 fL (80.0-96.0) Mean Corpuscular Hemoglobin 31.5 pg (26.0-33.0) Mean Corpuscular Hemoglobin Concent 34.1 g/dL (32.0-36.0) Red Cell Distribution Width 13.8 % (11.5-14.5) Platelet Count 133 K/uL (150-450) Mean Platelet Volume 11.5 fL (7.2-11.1) Neutrophils (%) (Auto) 66.5 % (39.4-72.5) Lymphocytes (%) (Auto) 15.8 % (17.6-49.6) Monocytes (%) (Auto) 16.7 % (4.1-12.4) Eosinophils (%) (Auto) 0.4 % (0.4-6.7) Basophils (%) (Auto) 0.6 % (0.3-1.4) Nucleated RBC Relative Count (auto) 0.4 /100WBC Neutrophils # (Auto) 5.8 K/uL (2.0-7.4) Lymphocytes # (Auto) 1.4 K/uL (1.3-3.6) Monocytes # (Auto) 1.5 K/uL (0.3-1.0) Eosinophils # (Auto) 0.0 K/uL (0.0-0.5) Basophils # (Auto) 0.1 K/uL (0.0-0.1) Nucleated RBC Absolute Count (auto) 0.03 K/uL Glomerular Filtration Rate Calc > 60.0 Calcium Level 9.5 mg/dl (8.4-10.2) Total Bilirubin 0.9 mg/dl (0.2-1.3) Aspartate Amino Transf (AST/SGOT) 33 U/L (0-35) Alanine Aminotransferase (ALT/SGPT) 21 U/L (0-56) Alkaline Phosphatase 52 U/L (0-126) Total Protein 6.9 gm/dl (6.3-8.2) Albumin 4.1 g/dl (3.5-5.0) EKG/Imaging Imaging X-ray: CXR was obtained. I viewed the images myself on the PACS system. My interpretation of the images is: hyperinflated lungs, no infiltrate. The radiologist interpretation had no clinically significant variation from this interpretation. ED Course/Re-evaluation ED Course 67-year-old female who was a daily tobacco smoker presents to the emergency department with 1 week of worsening cough and shortness of breath. Her initial oxygen saturations after walking through the parking I can into the emergency department without her nasal cannula was in the 70s. She received 2 nebulizer treatments, steroids, and azithromycin. Her breath sounds are more clear, she is moving air well, and feels improved. I think given her URI symptoms in combination with her COPD exacerbation is reasonable to keep her on azithromycin for the next 4 days. She was also given a five-day course of prednisone. She will follow-up with her primary care doctor this week. Decision to Disposition Date: Sep 22, 2017 Decision to Disposition Time: 10:25 Depart Departure Latest Vital Signs Vital Signs Date Time Temp Pulse Resp B/P (MAP) Pulse Ox O2 Delivery O2 Flow Rate FiO2 09/22/17 09:30 82 09/22/17 09:17 16 09/22/17 09:13 98 Nasal Cannula 2.0 09/22/17 09:00 119/76 (90) 09/22/17 07:05 98.8 Impression: Primary Impression: COPD exacerbation Condition: Improved Disposition: HOME OR SELF-CARE Referrals: LUDIVINA HERNANDEZ DO (PCP) New Scripts Prednisone (PREDNISONE) 20 Mg Tablet 40 MG PO QDAY for 5 Days, #10 TAB Prov: JB ROSADO MD 09/22/17 Azithromycin (ZITHROMAX) 250 Mg Tablet 1 TAB PO QDAY for 4 Days, #4 TAB Prov: JB ROSADO MD 09/22/17 Departure Forms: Medications Reconciliation, Patient Portal Information, ER Transition Record Patient Instructions: COPD (Chronic Obstructive Pulmonary Disease) (ED) JB ROSADO MD Sep 22, 2017 10:07
[2017-09-22] MEDS ORDERED: AZIT-1 PO (10:10)
[2017-09-22] MEDS ORDERED: PRED20TA6 PO (10:10)
[2017-09-22 10:16] VITALS: BP 115/73
== END 2017-09-22 10:21 | disposition home or self-care (01) ==
LOC: ER 07:33
DX: J44.1 Chronic obstructive pulmonary disease with (acute) exacerbation (principal)
CPT/HCPCS: 71046; 85025; 94640; 96365; 99284; J0456; J7050; J7512; J7613; J7620; 82040; 82247; 82310; 82374; 82435; 82565; 82947; 84075; 84132; 84155; 84295; 84450; 84460; 84520

== ENCOUNTER 2017-10-24 20:26 | Inpatient (IN) | payer MEDICARE ==
[~2017-10-24] VITALS: Ht 152.4 cm; Wt 43.1 kg
[~2017-10-24 20:26] MED LIST changes: +AZIT-1 PO; +IBUP-136 PO; -IBUP200C71 PO; +INDO-23 PO; -INDO50CA92 PO; +PRED20TA6 PO; -TRAZ-163 PO; +TRAZ100T31 PO
--- NOTE | 2017-10-24 20:29 | ER Report ---
History and Physical Time Seen By MD: 21:00 HPI/ROS CHIEF COMPLAINT: Diffuse abdominal pain, nausea, vomiting HISTORY OF PRESENT ILLNESS: Patient is a 67-year-old female here with complaints of diffuse abdominal pain, nausea, vomiting since yesterday evening. She has a history of bowel obstruction. She has not been able tolerate oral intake today and reports that her abdomen is nondistended and very painful to palpation. Patient also complains of shortness breath and has audible wheezing on exam. She also is on supplemental oxygen at baseline. Patient denies fevers, headache, blurred vision, chest pain, dysuria. REVIEW OF SYSTEMS: Constitutional: No fever, no chills. Eyes: No discharge. ENT: No sore throat. Cardiovascular: No chest pain, no palpitations. Respiratory: No cough, + shortness of breath. Gastrointestinal: + diffuse severe abdominal pain, no vomiting. Genitourinary: No hematuria. Musculoskeletal: No back pain. Skin: No rashes. Neurological: No headache. Allergies: Coded Allergies: hydromorphone (Verified Allergy, Unknown, MENTAL STATUS CHANGES, 07/03/17) Home Meds Active Scripts Prednisone (PREDNISONE) 20 Mg Tablet, 40 MG PO QDAY for 5 Days, #10 TAB Prov:JB ROSADO MD 09/22/17 Reported Medications Oxygen (OXYGEN) 2 L Inha, 2.5 L INH NIGHT, L 08/17/14 Trazodone Hcl (TRAZODONE HCL) 100 Mg Tablet, 1 TAB PO HS Y for INSOMNIA, #30 05/14/14 Albuterol Sulfate (Proair Hfa) 8.5 Gm Aer.w.adap, 8.5 GM IH BID Y, #1 2 Refills 2 puffs BID 10/09/10 Discontinued Reported Medications Sertraline Hcl (ZOLOFT) 100 Mg Tablet, 1 TAB PO QDAY, TAB 07/03/17 Discontinued Scripts Azithromycin (ZITHROMAX) 250 Mg Tablet, 1 TAB PO QDAY for 4 Days, #4 TAB Prov:JB ROSADO MD 09/22/17 Hx Smoking: Yes Smoking Status: Current: Every Day Smoker Hx Substance Use Disorder: No Hx Alcohol Use: No Constitutional Vital Sign - Last 24 Hours 10/24/17 10/24/17 10/24/17 10/24/17 20:30 20:31 21:39 21:40 Temp 98.4 Pulse 89 101 88 Resp 18 20 B/P (MAP) 131/108 (116) 145/87 Pulse Ox 90 95 O2 Delivery Nasal Cannula Nasal Cannula O2 Flow Rate 3.0 10/24/17 10/24/17 10/24/17 10/24/17 21:50 21:56 22:01 22:16 Pulse 87 ? 85 Resp 20 B/P (MAP) 130/70 (90) Pulse Ox 92 10/24/17 10/24/17 10/24/17 10/24/17 22:31 22:34 22:44 22:46 Pulse ??? 78 77 Resp 20 B/P (MAP) 138/85 (102) Pulse Ox 99 10/24/17 10/24/17 10/24/17 10/24/17 22:52 23:00 23:01 23:16 Pulse 88 79 79 Resp 20 B/P (MAP) 130/76 (94) Pulse Ox 95 95 10/24/17 10/24/17 10/24/17 10/24/17 23:30 23:31 23:36 23:51 Pulse 86 88 77 B/P (MAP) 132/84 (100) Pulse Ox 95 92 92 10/25/17 10/25/17 00:00 00:06 Pulse 77 B/P (MAP) 133/96 (108) Pulse Ox 94 Physical Exam General Appearance: The patient is alert, has no immediate need for airway protection and no signs of toxicity. Moderate distress secondary to pain Eyes: Pupils equal and round no pallor or injection. ENT, Mouth: Mucous membranes are moist. Respiratory: + diffuse wheezing. Cardiovascular: Regular rate and rhythm. Gastrointestinal: Abdomen is diffusely tender on palpation, no masses, bowel sounds normal. Neurological: No focal neurological deficit Skin: Warm and dry, no rashes. Musculoskeletal: Neck is supple non tender. Extremities are nontender, nonswollen and have full range of motion. DIFFERENTIAL DIAGNOSIS: After history and physical exam differential diagnosis was considered for pneumonia, COPD exacerbation, abdominal pain including but not limited to appendicitis, cholecystitis, gastritis and urinary tract infection. Medical Decision Making Data Points Result Diagram: 10/25/17 0546 10/25/17 0546 Laboratory Hematology Test 10/24/17 21:09 10/24/17 22:38 Neutrophils (%) (Auto) 82.8 % (39.4-72.5) Lymphocytes (%) (Auto) 5.7 % (17.6-49.6) Monocytes (%) (Auto) 11.0 % (4.1-12.4) Eosinophils (%) (Auto) 0.2 % (0.4-6.7) Basophils (%) (Auto) 0.3 % (0.3-1.4) Nucleated RBC Relative Count (auto) 0.0 /100WBC Neutrophils # (Auto) 18.6 K/uL (2.0-7.4) Lymphocytes # (Auto) 1.3 K/uL (1.3-3.6) Monocytes # (Auto) 2.5 K/uL (0.3-1.0) Eosinophils # (Auto) 0.0 K/uL (0.0-0.5) Basophils # (Auto) 0.1 K/uL (0.0-0.1) Nucleated RBC Absolute Count (auto) 0.00 K/uL Peripheral Blood Smear Yes Y/N Lipase 155 U/L (23-300) Urine Color Yellow Urine Clarity Clear Urine pH 5.0 pH (4.8-9.5) Urine Specific [place] 1.050 Urine Protein Negative mg/dL (NEGATIVE) Urine Glucose (UA) Negative mg/dL (NEGATIVE) Urine Ketones Trace mg/dL (NEGATIVE) Urine Blood Negative (NEGATIVE) Urine Nitrite Negative (NEGATIVE) Urine Bilirubin Negative (NEGATIVE) Urine Urobilinogen Negative mg/dL (0.2-1.9) Urine Leukocyte Esterase Negative (NEGATIVE) Urine RBC <1 /HPF (0-2/HPF) Urine WBC 1 /HPF (0-5/HPF) Urine Squamous Epithelial Cells Many /LPF (</=FEW) Urine Transitional Epithelial Cells Few /LPF (NONE-FEW) Urine Bacteria Negative /HPF (NONE-FEW) Urine Mucus Few /HPF (NONE-FEW) Chemistry Test 10/24/17 21:09 10/24/17 22:38 Neutrophils (%) (Auto) 82.8 % (39.4-72.5) Lymphocytes (%) (Auto) 5.7 % (17.6-49.6) Monocytes (%) (Auto) 11.0 % (4.1-12.4) Eosinophils (%) (Auto) 0.2 % (0.4-6.7) Basophils (%) (Auto) 0.3 % (0.3-1.4) Nucleated RBC Relative Count (auto) 0.0 /100WBC Neutrophils # (Auto) 18.6 K/uL (2.0-7.4) Lymphocytes # (Auto) 1.3 K/uL (1.3-3.6) Monocytes # (Auto) 2.5 K/uL (0.3-1.0) Eosinophils # (Auto) 0.0 K/uL (0.0-0.5) Basophils # (Auto) 0.1 K/uL (0.0-0.1) Nucleated RBC Absolute Count (auto) 0.00 K/uL Peripheral Blood Smear Yes Y/N Lipase 155 U/L (23-300) Urine Color Yellow Urine Clarity Clear Urine pH 5.0 pH (4.8-9.5) Urine Specific [place] 1.050 Urine Protein Negative mg/dL (NEGATIVE) Urine Glucose (UA) Negative mg/dL (NEGATIVE) Urine Ketones Trace mg/dL (NEGATIVE) Urine Blood Negative (NEGATIVE) Urine Nitrite Negative (NEGATIVE) Urine Bilirubin Negative (NEGATIVE) Urine Urobilinogen Negative mg/dL (0.2-1.9) Urine Leukocyte Esterase Negative (NEGATIVE) Urine RBC <1 /HPF (0-2/HPF) Urine WBC 1 /HPF (0-5/HPF) Urine Squamous Epithelial Cells Many /LPF (</=FEW) Urine Transitional Epithelial Cells Few /LPF (NONE-FEW) Urine Bacteria Negative /HPF (NONE-FEW) Urine Mucus Few /HPF (NONE-FEW) Urinalysis Test 10/24/17 22:38 Urine Color Yellow Urine Clarity Clear Urine pH 5.0 pH (4.8-9.5) Urine Specific [place] 1.050 Urine Protein Negative mg/dL (NEGATIVE) Urine Glucose (UA) Negative mg/dL (NEGATIVE) Urine Ketones Trace mg/dL (NEGATIVE) Urine Blood Negative (NEGATIVE) Urine Nitrite Negative (NEGATIVE) Urine Bilirubin Negative (NEGATIVE) Urine Urobilinogen Negative mg/dL (0.2-1.9) Urine Leukocyte Esterase Negative (NEGATIVE) Urine RBC <1 /HPF (0-2/HPF) Urine WBC 1 /HPF (0-5/HPF) Urine Squamous Epithelial Cells Many /LPF (</=FEW) Urine Transitional Epithelial Cells Few /LPF (NONE-FEW) Urine Bacteria Negative /HPF (NONE-FEW) Urine Mucus Few /HPF (NONE-FEW) EKG/Imaging Imaging EXAMINATION: CT abdomen and pelvis with IV contrast HISTORY: Abdominal pain and vomiting. TECHNIQUE: Axial CT images of the abdomen and pelvis were obtained with IV contrast, with coronal and sagittal 2D reconstructed images. One of the following dose optimization techniques was utilized in the performance of this exam: Automated exposure control; adjustment of the mA and/ or kV according to the patient's size; or use of an iterative reconstruction technique. Specific details can be referenced in the facility's radiology CT exam operational policy. Contrast: 75 mL of IV Isovue-370. COMPARISON: 07/03/2017. FINDINGS: Liver: Negative. Gallbladder and bile ducts: Negative. Spleen: Negative. Pancreas: Negative. Adrenal glands: Negative. Kidneys: The kidneys enhance normally. No urinary calculi or hydronephrosis. Stable small right renal cyst. Bowel and peritoneum: There is dilatation of multiple fluid- and air-filled small bowel loops in the abdomen and pelvis, with air-fluid levels. Dilated small bowel segments measure up to 3.7 cm in diameter. Apparent transition to decompressed distal small bowel in the lower midline pelvis. The distal ileum is decompressed. Appearance is similar to the prior exam, with appearance suspicious for small bowel obstruction. Small volume of scattered colonic stool. Colonic diverticulosis along the descending and sigmoid colon, without evidence of diverticulitis. Small amount of free fluid in the abdomen and pelvis with diffuse mesenteric edema, also similar to the prior exam. No free intraperitoneal air. Small hiatal hernia. Pelvic structures: Hysterectomy. Lymph node assessment: Negative. Vessels: Scattered vascular calcifications, with normal caliber abdominal aorta. IVC filter in place within the right common iliac vein. The limbs of the filter extend beyond the wall of the vein into the adjacent retroperitoneal fat , unchanged from the prior exam. Musculoskeletal: No acute osseous findings. Scattered degenerative changes throughout the spine. Body wall: Negative. Lung bases: Negative. IMPRESSION: 1. Multiple dilated small bowel loops in the abdomen and pelvis with decompressed distal ileum in the right lower abdomen, compatible with small bowel obstruction. Apparent transition in the central pelvis, located along the mid to distal ileum. 2. Small amount of free fluid in the abdomen and pelvis with mesenteric edema. No free intraperitoneal air. 3. No other acute intra-abdominal findings. 4. Colonic diverticulosis. Small volume of scattered colonic stool. Location: [facility] [place] Patient: Kim Strange : 1950 Visit/Account:[id number] Date of Sevice: 10/24/2017 CHEST PA AND LAT HISTORY: Shortness of breath COMPARISON: 09/22/2017 FINDINGS: Cardiomediastinal contours: Normal Lungs and pleura: Lungs are hyperexpanded. Stable mild blunting of the costophrenic angles. Stable irregular opacity at the right lower lobe, likely scar. No acute consolidation or edema. Bones/soft tissues: Multilevel mild degenerative disc disease. Other findings: None significant IMPRESSION: 1. No acute change. ED Course/Re-evaluation ED Course Patient is a 67-year-old female here with complaints of diffuse abdominal pain and found to have a small bowel obstruction in the ileum on CT imaging. Patient has had 5 prior abdominal surgeries including appendectomy, lysis of adhesions. She has not been able tolerate oral intake today and describes nausea and vomiting. Her abdomen was found to be distended and painful on exam. Patient responded well to antiemetics and analgesia. I discussed the patient Dr. Galindo who accepted the patient. She remained hemodynamically stable throughout course. Decision to Disposition Date: Oct 24, 2017 Decision to Disposition Time: 22:49 Depart Departure Latest Vital Signs Vital Signs Date Time Temp Pulse Resp B/P (MAP) Pulse Ox O2 Delivery O2 Flow Rate FiO2 10/25/17 00:06 77 94 10/25/17 00:00 133/96 (108) 10/24/17 22:52 20 10/24/17 21:40 Nasal Cannula 3.0 10/24/17 20:31 98.4 Impression: Primary Impression: Small bowel obstruction Additional Impression: Nausea & vomiting Condition: Improved Disposition: Admitted from ER Referrals: LUDVIINA HERNANDEZ DO (PCP) Problem Qualifiers DYLLAN SALCEDO DO Oct 24, 2017 20:28
[2017-10-24] MEDS ORDERED: ALBUTEROL/IPRATROPIUM 3 ML NEB NEB ONE ×4 (20:45→22:50)
[2017-10-24] MEDS ORDERED: fentaNYL CITR 100 MCG/2 ML AMP IVP ONE (20:45)
[2017-10-24] MEDS ORDERED: ONDANSETRON 4 MG/2 ML VIAL IVP ONE (20:45)
[2017-10-24] MEDS ORDERED: NS(*) 0.9% 1000 ML BAG 1,000 ML IV ONE (20:45)
[2017-10-24] MEDS ORDERED: IOPAMIDOL 76% 100 ML INFUS BTL 100 ML ONE (20:55)
[2017-10-24] MEDS ORDERED: methylPREDNIS SUCC 125 MG/2ML IVP ONE (21:40)
[2017-10-24 21:43] LABS: PLATELET COUNT, AUTOMATED 139 K/uL (150-450)
--- NOTE | 2017-10-24 21:54 | EKG ---
FACILITY: [facility] PATIENT NAME: EDWIN PERES : [id number] MR: [id number] V: [id number] EXAM DATE: ORDERING PHYSICIAN: DYLLAN SALCEDO TECHNOLOGIST: EDDI Test Reason : TROUBLE BREATHING Blood Pressure : / mmHG Vent. Rate : 093 BPM Atrial Rate : 093 BPM P-R Int : 110 ms QRS Dur : 082 ms QT Int : 458 ms P-R-T Axes : 069 075 080 degrees QTc Int : 569 ms Sinus rhythm with short CO with Possible premature atrial complexes with aberrant conduction Possible Left atrial enlargement Left ventricular hypertrophy Prolonged QT Abnormal ECG No previous ECGs available Confirmed by DREA ARAGON ([id number]) on 10/24/2017 9:58:36 PM Referred By: DENISSE Confirmed By:DREA ARAGON
--- NOTE | 2017-10-24 22:35 | RADIOLOGY IMAGING REPORT ---
FACILITY: [facility] PATIENT NAME: Kim Strange : 1950 MR: [id number] V: [id number] EXAM DATE: ORDERING PHYSICIAN: DYLLAN SALCEDO TECHNOLOGIST: Location: [facility] - [place] Patient: Kim Strange : 1950 Visit/Account:[id number] Date of Sevice: 10/24/2017 EXAMINATION: CT abdomen and pelvis with IV contrast HISTORY: Abdominal pain and vomiting. TECHNIQUE: Axial CT images of the abdomen and pelvis were obtained with IV contrast, with coronal a nd sagittal 2D reconstructed images. One of the following dose optimization techniques was utilized in the performance of this exam: Autom ated exposure control; adjustment of the mA and/or kV according to the patient's size; or use of an i terative reconstruction technique. Specific details can be referenced in the facility's radiology C T exam operational policy. Contrast: 75 mL of IV Isovue-370. COMPARISON: 07/03/2017. FINDINGS: Liver: Negative. Gallbladder and bile ducts: Negative. Spleen: Negative. Pancreas: Negative. Adrenal glands: Negative. Kidneys: The kidneys enhance normally. No urinary calculi or hydronephrosis. Stable small right rui l cyst. Bowel and peritoneum: There is dilatation of multiple fluid- and air-filled small bowel loops in the abdomen and pelvis, with air-fluid levels. Dilated small bowel segments measure up to 3.7 cm in diam eter. Apparent transition to decompressed distal small bowel in the lower midline pelvis. The distal ileum is decompressed. Appearance is similar to the prior exam, with appearance suspicious for small bowel obstruction. Small volume of scattered colonic stool. Colonic diverticulosis along the descending and sigmoid colo n, without evidence of diverticulitis. Small amount of free fluid in the abdomen and pelvis with diff use mesenteric edema, also similar to the prior exam. No free intraperitoneal air. Small hiatal herni a. Pelvic structures: Hysterectomy. Lymph node assessment: Negative. Vessels: Scattered vascular calcifications, with normal caliber abdominal aorta. IVC filter in place within the right common iliac vein. The limbs of the filter extend beyond the wall of the vein into the adjacent retroperitoneal fat, unchanged from the prior exam. Musculoskeletal: No acute osseous findings. Scattered degenerative changes throughout the spine. Body wall: Negative. Lung bases: Negative. IMPRESSION: 1. Multiple dilated small bowel loops in the abdomen and pelvis with decompressed distal ileum in the right lower abdomen, compatible with small bowel obstruction. Apparent transition in the central pel vis, located along the mid to distal ileum. 2. Small amount of free fluid in the abdomen and pelvis with mesenteric edema. No free intraperitonea l air. 3. No other acute intra-abdominal findings. 4. Colonic diverticulosis. Small volume of scattered colonic stool. Findings were discussed with DYLLAN SALCEDO at 10/24/2017 10:30 PM. Report Dictated By: Ivan Perez MD at 10/24/2017 10:21 PM Report E-Signed By: Ivan Perez MD at 10/24/2017 10:32 PM WSN:[id number]
--- NOTE | 2017-10-24 22:49 | RADIOLOGY IMAGING REPORT ---
FACILITY: [facility] PATIENT NAME: Kim Strange : 1950 MR: [id number] V: [id number] EXAM DATE: ORDERING PHYSICIAN: DYLLAN SALCEDO TECHNOLOGIST: Location: [facility] Patient: Kim Strange : 1950 Visit/Account:[id number] Date of Sevice: 10/24/2017 CHEST PA AND LAT HISTORY: Shortness of breath COMPARISON: 09/22/2017 FINDINGS: Cardiomediastinal contours: Normal Lungs and pleura: Lungs are hyperexpanded. Stable mild blunting of the costophrenic angles. Stable ir regular opacity at the right lower lobe, likely scar. No acute consolidation or edema. Bones/soft tissues: Multilevel mild degenerative disc disease. Other findings: None significant IMPRESSION: 1. No acute change. Report Dictated By: Kemar Minor MD at 10/24/2017 10:44 PM Report E-Signed By: Kemar Minor MD at 10/24/2017 10:46 PM WSN:[id number]
[2017-10-25] VITALS (7 sets, daily range): BP systolic 92–125; BP diastolic 49–67; Ht 152.4 cm; Wt 43.1 kg
[2017-10-25] MEDS ORDERED: ONDANSETRON 4 MG/2 ML VIAL IVP PRN (01:20)
[2017-10-25] MEDS ORDERED: MORPHINE 1 MG/ML 30 ML PCA IV PRN (01:20)
[2017-10-25] MEDS: D5NS(*) 1000 ML BAG 1,000 ML IV PRN ×2 (02:20→12:50)
--- NOTE | 2017-10-25 05:33 | Hospitalist Consultation ---
History of Present Illness Requesting Physician Dr. Galindo Reason for Consult COPD History of Present Illness This patient was admitted for a bowel obstruction. The current plan is to manage her conservatively. History Problems: (1) Depression Status: Chronic (2) Factor V Leiden mutation Status: Chronic (3) History of pulmonary embolism Status: Chronic (4) COPD (chronic obstructive pulmonary disease) Status: Chronic Home Meds Active Scripts Prednisone (PREDNISONE) 20 Mg Tablet, 40 MG PO QDAY for 5 Days, #10 TAB Prov:JB ROSADO MD 09/22/17 Reported Medications Oxygen (OXYGEN) 2 L Inha, 2.5 L INH NIGHT, L 08/17/14 Trazodone Hcl (TRAZODONE HCL) 100 Mg Tablet, 1 TAB PO HS Y for INSOMNIA, #30 05/14/14 Albuterol Sulfate (Proair Hfa) 8.5 Gm Aer.w.adap, 8.5 GM IH BID Y, #1 2 Refills 2 puffs BID 10/09/10 Discontinued Reported Medications Sertraline Hcl (ZOLOFT) 100 Mg Tablet, 1 TAB PO QDAY, TAB 07/03/17 Discontinued Scripts Azithromycin (ZITHROMAX) 250 Mg Tablet, 1 TAB PO QDAY for 4 Days, #4 TAB Prov:JB ROSADO MD 09/22/17 Allergies: Coded Allergies: hydromorphone (Verified Allergy, Unknown, MENTAL STATUS CHANGES, 07/03/17) Patient History: FH: CHF (congestive heart failure) MOTHER FH: COPD (chronic obstructive pulmonary disease) MOTHER Hx Smoking: Yes (5 ciagarettes per day) Smoking Status: Current: Every Day Smoker Caffeine Intake: Coffee Caffeine/Cups Per Day: 3 Hx Alcohol Use: No Hx Substance Use Disorder: No Social Drug Use: Currently Social Drugs: Marijuana Review of Systems All Systems Reviewed/Normal: Yes, Except as Noted Gastrointestinal: Nausea, Vomiting, Abdominal Pain Exam Vital Signs Vital Signs Date Time Temp Pulse Resp B/P (MAP) Pulse Ox O2 Delivery O2 Flow Rate FiO2 10/25/17 04:44 98.1 66 16 92/56 (68) 95 Nasal Cannula 2.5 Cardiovascular: Regular Rate and Rhythm Respiratory: Clear to Auscultation Medical Decision Making Data Points Result Diagram: 10/24/17210810/24/172108 Assessment and Plan Problems: (1) COPD (chronic obstructive pulmonary disease) Status: Chronic Assessment & Plan: She is on chronic treatment with albuterol. (2) Depression Status: Chronic Assessment & Plan: She is on chronic treatment with trazodone, bupropion, and sertraline. These medications will remain on hold while she is NPO. (3) Factor V Leiden mutation Status: Chronic Assessment & Plan: She is not on chronic anticoagulation. She is currently receiving prophylactic Lovenox. Venous Thromboembolism Antithrombotics Is Pt On Any Antithrombotics?: No Exam Sepsis Risk: No Definite Risk DREA ARAGON DO Oct 25, 2017 05:33
[2017-10-25 06:00] LABS: PLATELET COUNT, AUTOMATED 113 K/uL (150-450)
[2017-10-25] MEDS ORDERED: BISACODYL 10 MG SUPP PR ONE (08:15)
[2017-10-25] MEDS ORDERED: BUPR-124 PO (08:20)
[2017-10-25] MEDS ORDERED: SERT-181 PO (08:20)
--- NOTE | 2017-10-25 08:21 | History & Physical ---
History of Present Illness Chief Complaint bowel obstruction History of Present Illness 67 year old female presented with one day of vomiting and abdominal pain. She has a h/o multiple bowel obstructions in the past. Her last surgery for bowel obstruction was many years ago and of recent she has been able to manage conservatively. She always denies a NGT as she experienced some nasal trauma at some point from this. Her pain is diffuse. She is distended. She is not passing flatus but did have a bowel movement today. She is not on blood thinners. Sinus tachycardia and leukocytosis of 22k on arrival. Lactate was normal. CT noted transition point in RLQ with abundant stool in colon History Problems: (1) Small bowel obstruction Status: Acute Home Meds Active Scripts Prednisone (PREDNISONE) 20 Mg Tablet, 40 MG PO QDAY for 5 Days, #10 TAB Prov:JB ROSADO MD 09/22/17 Reported Medications Oxygen (OXYGEN) 2 L Inha, 2.5 L INH NIGHT, L 08/17/ Trazodone Hcl (TRAZODONE HCL) 100 Mg Tablet, 1 TAB PO HS Y for INSOMNIA, #30 05/14/14 Albuterol Sulfate (Proair Hfa) 8.5 Gm Aer.w.adap, 8.5 GM IH BID Y, #1 2 Refills 2 puffs BID 10/09/10 Discontinued Reported Medications Sertraline Hcl (ZOLOFT) 100 Mg Tablet, 1 TAB PO QDAY, TAB 07/03/17 Discontinued Scripts Azithromycin (ZITHROMAX) 250 Mg Tablet, 1 TAB PO QDAY for 4 Days, #4 TAB Prov:JB ROSADO MD 09/22/17 Allergies: Coded Allergies: hydromorphone (Verified Allergy, Unknown, MENTAL STATUS CHANGES, 07/03/17) Patient History: FH: CHF (congestive heart failure) MOTHER FH: COPD (chronic obstructive pulmonary disease) MOTHER Hx Smoking: Yes (5 ciagarettes per day) Smoking Status: Current: Every Day Smoker Caffeine Intake: Coffee Caffeine/Cups Per Day: 3 Hx Alcohol Use: No Hx Substance Use Disorder: No Social Drug Use: Currently Social Drugs: Marijuana Review of Systems Gastrointestinal: Nausea, Vomiting, Abdominal Pain Exam Vital Signs Vital Signs Date Time Temp Pulse Resp B/P (MAP) Pulse Ox O2 Delivery O2 Flow Rate FiO2 10/25/17 07:00 98.9 66 16 101/56 (71) 93 Nasal Cannula 2.0 General Appearance: Alert, Awake Eyes: PERRLA ENT: Moist Mucous Membranes GI: Abd Soft and Non-Tender (distended, tender mildly without peritoneal signs. ) : Normal Musculoskeletal: No Weakness/Pain Extremities: Soft and Non Tender Integumentary: Skin Intact without Lesion / Mass Psych: Alert & Oriented X3 Medical Decision Making Data Points Result Diagram: 10/25/1754510/25/17545 Assessment and Plan Problems: (1) Small bowel obstruction Status: Resolved Assessment & Plan: will attempt conservative management. May need surgical treatment as she is refusing NGT monitor labs, replete electrolytes NPO, IVFs, popcorn candy maker for pain control Time Spent on Plan of Care: > 30 min Venous Thromboembolism Antithrombotics Is Pt On Any Antithrombotics?: No Exam Sepsis Risk: No Definite Risk MACEY BERKOWITZ MD Oct 25, 2017 08:21
--- NOTE | 2017-10-25 08:24 | General Surgery Progress Note ---
Subjective Progress Notes Subjective pain improved Physical Exam Vital Signs Date Time Temp Pulse Resp B/P (MAP) Pulse Ox O2 Delivery O2 Flow Rate FiO2 10/25/17 07:00 98.9 66 16 101/56 (71) 93 Nasal Cannula 2.0 General Appearance: Alert, No Acute Distress ENT: Moist Mucous Membranes Cardiovascular: Normal Rhythm & Peripheral Pulses Respiratory: No Respiratory Distress GI: Other (less tender, still distended) Musculoskeletal: No Weakness/Pain Extremities: Soft and Non Tender Integumentary: Skin Intact without Lesion / Mass Psych: Alert & Oriented X3 Result Diagram: 10/25/1754510/25/17545 Assessment and Plan Problems: (1) Small bowel obstruction Status: Resolved Assessment & Plan: NPO, IVFs, lab support tech for pain control labs improved with hydration check KUB, suppository May need surgical treatment as she is refusing NGT Exam Sepsis Risk: No Definite Risk MACEY BERKOWITZ MD Oct 25, 2017 08:24
[2017-10-25] MEDS: SERTRALINE HCL 50 MG TAB PO SCH (08:58)
[2017-10-25] MEDS: ENOXAPARIN 40 MG/0.4ML SYR SC SCH (08:58)
[2017-10-25] MEDS: predniSONE 20 MG TAB PO SCH (08:58)
[2017-10-25] MEDS ORDERED: HYDROCORTISONE 100 MG/2 ML IVP SCH (09:00)
[2017-10-25] MEDS: ALBUTEROL 2.5 MG/3 ML NEB NEB PRN ×2 (09:13→13:35)
[2017-10-25] MEDS: buPROPion XL 150 MG TABCR PO SCH (09:24)
--- NOTE | 2017-10-25 09:54 | Miscellaneous Provider Note ---
Miscellaneous Provider Note Note Her diet was advanced to clear liquids. At this time, I will restart her usual medication regimen she takes at home. TERESA LOUIS Oct 25, 2017 09:54
--- NOTE | 2017-10-25 10:05 | RADIOLOGY IMAGING REPORT ---
FACILITY: [facility] - [place] PATIENT NAME: Kim Strange : 1950 MR: [id number] V: [id number] EXAM DATE: ORDERING PHYSICIAN: MACEY BERKOWITZ TECHNOLOGIST: [place] [facility] [place] Patient: Kim Strange : 1950 Visit/Account:[id number] Date of Sevice: 10/25/2017 KUB SINGLE VIEW ABDOMEN Indication: Bowel obstruction Comparison: Single view abdomen from 07/06/2017 Findings: Bowel gas seen throughout the abdomen in a nonobstructive pattern. There are no pathologic calcifications identified. Moderate amount of stool seen throughout the colon. IVC filter is again seen with the superior tip of the IVC filter at the level the L3-L4 disc space. IMPRESSION: 1. Nonobstructive bowel gas pattern. 2. Moderate stool within the colon. Report Dictated By: Ulisses Hunter MD at 10/25/2017 8:54 AM Report E-Signed By: Ulisses Hunter MD at 10/25/2017 10:00 AM WSN:[email or web address]
[2017-10-25] MEDS ORDERED: NS(*) 0.9% 500 ML BAG 500 ML IV ONE (10:20)
[2017-10-25] MEDS ORDERED: NS(*) 0.9% 500 ML BAG 500 ML ONE (10:21)
[2017-10-25] MEDS ORDERED: MAGNESIUM SUL* 2 GM/50 ML IVPB 50 ML IVPB ONE (13:15)
--- NOTE | 2017-10-25 17:01 | EKG ---
FACILITY: [facility] - [place] PATIENT NAME: EDWIN PERES : [id number] MR: [id number] V: [id number] EXAM DATE: ORDERING PHYSICIAN: MACEY BERKOWITZ TECHNOLOGIST: ASHLEY Ramos Reason : PACS Blood Pressure : / mmHG Vent. Rate : 075 BPM Atrial Rate : 075 BPM P-R Int : 124 ms QRS Dur : 110 ms QT Int : 366 ms P-R-T Axes : 075 079 080 degrees QTc Int : 408 ms Sinus rhythm Probable left atrial enlargement Nonspecific ST-T findings Abnormal ECG Confirmed by EUN RAMIREZ ([id number]) on 10/26/2017 5:41:51 AM Referred By: Confirmed By:EUN RAMIREZ
--- NOTE | 2017-10-25 17:07 | Hospitalist Depart ---
Discharge Summary Reason for Hosp/Final Diag: (1) Small bowel obstruction Status: Resolved Hospital Course & Plan: NPO, IVFs, cyber intelligence analyst for pain control labs improved with hydration check KUB, suppository May need surgical treatment as she is refusing NGT She started to pass flatus and have BM on morning of HD1. She wants to go home so that she can be at her 50th high school reunion. She was encouraged to stay one more night but she refused. Departure Weight (Pounds): 95 Weight (Ounces): 2.0 Result Diagram: 10/25/1754510/25/17545 Condition: Improved Discharge: Home Discharge Code Status: Full Code Time Spent: > 30 min Discharge Instructions Home Meds Active Scripts Prednisone (PREDNISONE) 20 Mg Tablet, 40 MG PO QDAY for 5 Days, #10 TAB Prov:JB ROSADO MD 09/22/17 Reported Medications Bupropion Hcl (BUPROPION XL) 150 Mg Tab.er.24h, 150 MG PO DAILY 10/25/17 Sertraline Hcl (SERTRALINE HCL) 100 Mg Tablet, 100 MG PO DAILY 10/25/17 Oxygen (OXYGEN) 2 L Inha, 2.5 L INH NIGHT, L 08/17/14 Trazodone Hcl (TRAZODONE HCL) 100 Mg Tablet, 1 TAB PO HS Y for INSOMNIA, #30 05/14/14 Albuterol Sulfate (Proair Hfa) 8.5 Gm Aer.w.adap, 8.5 GM IH BID Y, #1 2 Refills 2 puffs BID 10/09/10 Discontinued Reported Medications Sertraline Hcl (ZOLOFT) 100 Mg Tablet, 1 TAB PO QDAY, TAB 07/03/17 Discontinued Scripts Azithromycin (ZITHROMAX) 250 Mg Tablet, 1 TAB PO QDAY for 4 Days, #4 TAB Prov:JB ROSADO MD 09/22/17 Diet: Regular Activity: As Tolerated Special Instructions: return to ED immediately if bowel obstruction recurs. She is being discharged prior to what I would recommend but do to a special circumstance and her clinical improvement she will be discharged with strict instructions to return if she develops any problems. Venous Thromboembolism Antithrombotics Is Pt On Any Antithrombotics?: No MACEY BERKOWITZ MD Oct 25, 2017 17:07
[2017-10-25] MEDS ORDERED: traZODone HCL 50 MG TAB PO PRN (22:20)
[2017-10-26] MEDS: D5NS(*) 1000 ML BAG 1,000 ML IV PRN (00:30)
[2017-10-26 05:00] VITALS: BP 143/72
[2017-10-26] MEDS: ALBUTEROL 2.5 MG/3 ML NEB NEB PRN ×2 (05:05→06:58)
[2017-10-26] MEDS ORDERED: ALBUTEROL SULFATE 90 MCG/ACT 8.5 GM HNH INH PRN (06:10)
--- NOTE | 2017-10-26 06:12 | Hospitalist Progress Note ---
Subjective Progress Notes Subjective She c/o "feeling lousy". Passing some flatus. She has also noted some wheezing. Physical Exam Vital Signs Date Time Temp Pulse Resp B/P (MAP) Pulse Ox O2 Delivery O2 Flow Rate FiO2 10/26/17 05:13 70 20 10/26/17 05:05 93 Nasal Cannula 4.0 10/26/17 05:00 143/72 (95) 10/25/17 20:21 98.9 General Appearance: Alert, Awake Cardiovascular: Regular Rate and Rhythm (distant tones) Respiratory: Other (expiratory wheezes bilaterally) Extremities: Warm, Perfused Psych: Alert & Oriented X3 Result Diagram: 10/25/17 0546 10/25/17 0546 Assessment and Plan Problems: (1) COPD (chronic obstructive pulmonary disease) Status: Chronic Assessment & Plan: She has on chronic treatment with albuterol and oxygen ( usually at 2-3L). She did have prednisone started for an acute exacerbation a few days before admission. She has been restarted on prednisone 40mg daily. She will need to continue this after discharge and follow up closely with her PCP. (2) Depression Status: Chronic Assessment & Plan: She is on chronic treatment with trazodone, bupropion, and sertraline. These medications were initially on hold while she was NPO. They have now been restarted. (3) Factor V Leiden mutation Status: Chronic Assessment & Plan: She is not on chronic anticoagulation (has not been for close to 20 years). She is currently receiving prophylactic Lovenox. Exam Sepsis Risk: No Definite Risk EUN RAMIREZ MD Oct 26, 2017 06:12
[2017-10-26 06:18] LABS: PLATELET COUNT, AUTOMATED 105 K/uL (150-450)
[2017-10-26 07:28] VITALS: BP 125/69
[2017-10-26] MEDS ORDERED: ALBUTEROL 8 GM INHALER INH PRN (08:15)
[2017-10-26] MEDS: ENOXAPARIN 40 MG/0.4ML SYR SC SCH (08:33)
[2017-10-26] MEDS: SERTRALINE HCL 50 MG TAB PO SCH (08:33)
[2017-10-26] MEDS: predniSONE 20 MG TAB PO SCH (08:33)
[2017-10-26] MEDS: buPROPion XL 150 MG TABCR PO SCH (08:33)
[2017-10-26] MEDS ORDERED: HYDR-4309 PO (09:35)
--- NOTE | 2017-10-26 09:43 | General Surgery Progress Note ---
Subjective Progress Notes Subjective passing flatus Physical Exam Vital Signs Date Time Temp Pulse Resp B/P (MAP) Pulse Ox O2 Delivery O2 Flow Rate FiO2 10/26/17 08:53 95 Nasal Cannula 2.0 10/26/17 08:53 75 18 10/26/17 07:28 97.4 125/69 (87) Intake and Output 10/27/17 07:00 Intake Total 360 ml Balance 360 ml Intake Oral 360 ml # Voids 1 General Appearance: Alert, Awake ENT: Moist Mucous Membranes Cardiovascular: Normal Rhythm & Peripheral Pulses, Regular Rate and Rhythm Respiratory: No Respiratory Distress GI: Other (mild distension, soft, no tenderness) Integumentary: Skin Intact without Lesion / Mass Psych: Alert & Oriented X3 Result Diagram: 10/26/17 0517 10/26/17 05 Monitor Interpretation: Normal Sinus Rhythm Assessment and Plan Problems: (1) Small bowel obstruction Status: Resolved Assessment & Plan: 10/25 NPO, IVFs, reliability manager for pain control labs improved with hydration check KUB, suppository May need surgical treatment as she is refusing NGT She started to pass flatus and have BM on morning of HD1. She wants to go home so that she can be at her 50th high school reunion. She was encouraged to stay one more night but she refused. 10/26 Doing well. had a bm yesterday passing flatus today no fevers and vitals normal home today Exam Sepsis Risk: No Definite Risk MACEY BERKOWITZ MD Oct 26, 2017 09:43
[2017-10-26] MEDS ORDERED: SENNOSIDES 8.6 MG TAB PO SCH (09:45)
[2017-10-26] MEDS ORDERED: MAGNESIUM HYDROXIDE* 30ML UDCP PO ONE (09:45)
== END 2017-10-26 10:15 | disposition home or self-care (01) | DRG 389 ==
LOC: ER 20:49 → MED 10-25 00:18
PROVIDERS: ADMIT Surgery; ATTEND Surgery
DX: K56.609 Unspecified intestinal obstruction, unspecified as to partial versus complete obstruction (principal); D68.51 Activated protein C resistance; F17.210 Nicotine dependence, cigarettes, uncomplicated; F32.9 Major depressive disorder, single episode, unspecified; J44.9 Chronic obstructive pulmonary disease, unspecified; Z86.711 Personal history of pulmonary embolism; Z90.710 Acquired absence of both cervix and uterus; Z88.5 Allergy status to narcotic agent
CPT/HCPCS: 36415; 71046; 74018; 74177; 81001; 82040; 82247; 82310; 82374; 82435; 82565; 82947; 83605; 83690; 84075; 84132; 84155; 84295; 84450; 84460; 84520; 85007; 85025; 85027; 85610; 93005; 94640; J1650; J2270; J2405; J2930; J3010; J3475; J3535; J7030; J7040; J7042; J7512; J7613; Q9967

== ENCOUNTER → 2018-02-14 | Outpatient (REF) | payer MEDICARE ==
[2017-10-25 13:03] VITALS: BMI 18.6
[~2018-02-14] MED LIST changes: +BUPR-124 PO; +HYDR-653 PO; +SERT-181 PO
== END ==
LOC: ZZSENDIN 12:00
PROVIDERS: ATTEND Orthopaedic Surgery Hand Surgery
DX: M67.441 Ganglion, right hand (principal)
CPT/HCPCS: 88304

== ENCOUNTER → 2018-03-24 | Outpatient (CLI) | payer MEDICARE ==
[2017-10-25 13:03] VITALS: BMI 18.6
== END ==
LOC: SPU 07:06
PROVIDERS: ATTEND Family Medicine
DX: Z02.9 Encounter for administrative examinations, unspecified (principal)

== ENCOUNTER → 2018-04-03 | Outpatient (CLI) | payer MEDICARE ==
[2017-10-25 13:03] VITALS: BMI 18.6
[~2018-04-03] MED LIST changes: +DENOSUMAB 60 MG/1 ML SYR SUBQ ONE
[2018-04-03 15:25] VITALS: BP 145/57
== END ==
LOC: SPU 08:38
PROVIDERS: ATTEND Family Medicine
DX: M81.0 Age-related osteoporosis without current pathological fracture (principal)
CPT/HCPCS: 96372; J0897

== ENCOUNTER → 2018-09-04 | Outpatient (CLI) | payer MEDICARE ==
[2017-10-25 13:03] VITALS: BMI 18.6
[~2018-09-04] MED LIST changes: -DENOSUMAB 60 MG/1 ML SYR SUBQ ONE; +IOPAMIDOL 76% 100 ML INFUS BTL 100 ML ONE
--- NOTE | 2018-09-04 15:24 | RADIOLOGY IMAGING REPORT ---
FACILITY: [facility] - [place] PATIENT NAME: Kim Strange : 1950 MR: [id number] V: [id number] EXAM DATE: ORDERING PHYSICIAN: LUDIVINA HERNANDEZ TECHNOLOGIST: Location: [facility] [place] Patient: Kim Strange : 1950 Visit/Account:[id number] Date of Sevice: 09/04/2018 CT CHEST (CONTRAST) History: TECHNIQUE: Contiguous axial images were performed through the chest to the level of the adrenal gla nds following the administration of IV contrast. Coronal and sagittal reformatting was also perform ed.Dose Lowering Technique One of the following dose optimization techniques was utilized in the performance of this exam: Autom ated exposure control; adjustment of the mA and/or kV according to the patient's size; or use of an i terative reconstruction technique. Specific details can be referenced in the facility's radiology C T exam operational policy. Contrast: 75 mL Isovue-370 COMPARISON STUDIES: CT chest abdomen pelvis fibroid third 2010. Lungs / Pleura: There is biapical pleural parenchymal scarring, right side slightly more affected t castell[place] the left. There is centrilobular emphysema with an upper lobe predominance. These two findings are slightly more prominent when compared the prior study There is linear scarring in the inferior ri ght middle lobe and in the lower lobes Mediastinum/nodes: negative. Heart and vessels: There mild atherosclerotic calcifications in the abdominal aorta and branch vesse ls. Central pulmonary arteries are mildly prominent Musculoskeletal / Body wall: There spondylotic changes of the thoracic spine and an S-shaped scolio sis. Upper abdomen: Visualized abdominal viscera negative. IMPRESSION: Centrilobular emphysema bilaterally with an upper lobe predominance is slightly more advanced when co mpared to the prior study from May 18, 2010 Biapical pleural parenchymal scarring, right side more so than the left is slightly more prominent wh en compared the prior study Central pulmonary arteries are mildly prominent which can be seen with pulmonary arterial hypertensio n Report Dictated By: Jennifer Velez MD at 09/04/2018 3:14 PM Report E-Signed By: Jennifer Velez MD at 09/04/2018 3:19 PM WSN:[id number]
== END ==
LOC: CT 08-29 01:27
PROVIDERS: ATTEND Family Medicine
DX: Z12.31 Encounter for screening mammogram for malignant neoplasm of breast (principal); J43.2 Centrilobular emphysema; I28.8 Other diseases of pulmonary vessels; M81.0 Age-related osteoporosis without current pathological fracture
CPT/HCPCS: 71260; Q9967

== ENCOUNTER 2018-10-01 10:59 | Outpatient (RCR) | payer MEDICARE ==
[2017-10-25 13:03] VITALS: BMI 18.6
[~2018-10-01 10:59] MED LIST changes: -IOPAMIDOL 76% 100 ML INFUS BTL 100 ML ONE
[2018-10-01] MEDS ORDERED: DENOSUMAB 60 MG/1 ML SYR SUBQ ONE (11:05)
[2018-10-01 11:28] VITALS: BP 168/86
== END 2018-11-05 13:42 | disposition home or self-care (01) ==
LOC: SPU 10:59
PROVIDERS: ATTEND Family Medicine
DX: M81.0 Age-related osteoporosis without current pathological fracture (principal)
CPT/HCPCS: 96372; J0897

== ENCOUNTER → 2018-10-06 | Outpatient (CLI) | payer MEDICARE ==
[2017-10-25 13:03] VITALS: BMI 18.6
--- NOTE | 2018-10-07 09:47 | RADIOLOGY IMAGING REPORT ---
FACILITY: [facility] PATIENT NAME: Kim Strange : 1950 MR: [id number] V: [id number] EXAM DATE: ORDERING PHYSICIAN: LUDIVINA HERNANDEZ TECHNOLOGIST: Location: [facility] Patient: Kim Strange : 1950 Visit/Account:[id number] Date of Sevice: 10/06/2018 DEXA Scan HISTORY: Osteoporosis. COMPARISON: 02/07/2017. LUMBAR SPINE: The bone mineral density (BMD) measured from L1-L4 correlates with a Z-score of 0.0 and a T-score of -2.4 which is osteopenia as defined by the World Health Organization. The corresponding risk of frac ture in the lumbar spine is increased compared with a young adult reference population. This value h as increased by 9.9 % since the prior study. More than 5% change is considered significant. HIP: Bone mineral density (BMD) measured in the left total hip region correlates with a Z-score of -1.3 an d a T-score of -3.2 which is osteoporosis as defined by the World Health Organization. The correspon ding risk of fracture in the hip is height compared with a young adult reference population. This jerardo ue in the total hip has increased by 5.8 % since the prior study. More than 5% change is considered significant. Bone mineral density (BMD) measured in the left Femoral Neck region measures 0.610 g/cm2. IMPRESSION: 1. Lumbar spine: Osteopenia. There has been a 9.9% increase in the bone mineral density since the previous exam. 2. Left total hip: Osteoporosis. There has been a 5.8% increase in the bone mineral density since the previous exam. 3. Left Femoral Neck: Bone Mineral Density is 0.610 g/cm2 The next DEXA scan of this patient should include the following sites: L1-L4 and left hip. FRAX? WHO Fracture Risk Assessment Tool link: <http://www.shef.ac.uk/FRAX/tool.jsp?locationValue=9> PLEASE NOTE: 1) The World Health Organization defines low BMD as follows: T-score Normal > -1 Osteopenia < -1 and > -2.5 Osteoporosis < -2.5 without fractures Established osteoporosis < -2.5 with fractures 2) In general, you may wish to consider: Diagnosis Treatment Follow-up DEXA Normal BMD Prevention 2-3 years Osteopenia Prevention/therapy 1-2 years Osteoporosis Therapy Yearly 3) Fracture risk estimated from the T-score is more accurate for vertebral fractures (often spontane ous) than for hip fractures. Report Dictated By: Binh Mcbride MD at 10/07/2018 9:38 AM Report E-Signed By: Binh Mcbride MD at 10/07/2018 9:41 AM WSN:[email or web address]
--- NOTE | 2018-10-07 17:09 | RADIOLOGY IMAGING REPORT ---
[place] [facility] [place] EDWIN PERES : [id number] MR: [id number] V: [id number] EXAM DATE: [id number] ORDERING PHYSICIAN: LUDIVINA HERNANDEZ TECHNOLOGIST: Mehreen Jones PROCEDURE: BILATERAL DIGITAL SCREENING MAMMOGRAM WITH CAD ASSISTED INTERPRETATION & 3D TOMOSYNTHESIS COMPARISON: 02/07/2017. VIEWS OBTAINED: 2D & 3D full field CC & MLO. BREAST DENSITY: Scattered areas of fibroglandular density. MAMMOGRAM FINDINGS: Scattered benign calcifications are seen in both Right and Left breasts. There is no suspicious mass, calcification, or architectural distortion. IMPRESSION: BIRADS 2: Benign finding. DIAGNOSTIC CATEGORY 2--BENIGN FINDING. RECOMMENDATIONS: ROUTINE MAMMOGRAM AND CLINICAL EVALUATION. Dictated by: Osbaldo Arreguin M.D. on 10/06/2018 at 14:50 Transcribed by: WILLI on 10/07/2018 at 10:59 Approved by: Jennifer Velez M.D. on 10/07/2018 at 17:07 [facility]
== END ==
LOC: MAMO 00:24
PROVIDERS: ATTEND Family Medicine
DX: M85.88 Other specified disorders of bone density and structure, other site (principal); M81.0 Age-related osteoporosis without current pathological fracture; Z12.31 Encounter for screening mammogram for malignant neoplasm of breast
CPT/HCPCS: 77063; 77067; 77080